=== PATIENT | female | born 1940 | race Caucasian/White ===

== ENCOUNTER 2016-10-08 10:15 | Emergency (ER) | payer MEDICARE, BC ==
[2016-10-08] MEDS ORDERED: Sodium Chloride 0.9% 10 ML Syringe FLUSH PRN (11:12)
[2016-10-08] MEDS ORDERED: Sodium Chloride 0.9% 1,000 ML IV SCH (11:15)
[2016-10-08] MEDS ORDERED: HYDROmorphone 0.5 MG/0.5 ML Syringe IVPUSH ONE (11:15)
[2016-10-08] MEDS ORDERED: Ondansetron 4 MG/2 ML SDV IVPUSH ONE (11:15)
--- NOTE | 2016-10-08 11:18 | EDM.PDOC ---
ED HPI GI/ABDOMINAL - General Chief Complaint: Abdominal Pain Stated Complaint: ABDOMINAL PAIN Time Seen by Provider: 10/08/16 11:06 Source: Reports: Patient, RN notes reviewed History Limitations: Reports: No limitations - History of Present Illness INITIAL COMMENTS - FREE TEXT/NARRATIVE: 75-year-old female [facility] emergency [facility] for severe left lower quadrant pain, she has a known history of diverticular disease as well as abdominal surgeries appendix this in and cholecystectomy. She states that ongoing abdominal pain for several months in the left lower quadrant but usually resolves spontaneously this particular event has been going on the last couple of days more and more intense at the point where it brings tears to her eyes she has not passed any gas denies any fevers shortness of breath chest pain - Related Data Allergies/ADRs: Allergies Allergy/AdvReac Type Severity Reaction Status Date / Time venom-honey bee Allergy Severe Difficulty Verified 10/08/16 10:57 [bee venom (honey bee)] Breathing codeine AdvReac Lightheaded Verified 10/08/16 10:57 ness sulfamethoxazole AdvReac Lightheaded Verified 10/08/16 10:57 [From Bactrim] ness trimethoprim [From Bactrim] AdvReac Lightheaded Verified 10/08/16 10:57 ness Home Meds: Home Meds Aspirin [Low Dose Aspirin EC] 81 mg PO DAILY 11/12/13 [History] Furosemide [Lasix] 40 mg PO DAILY 11/12/13 [History] Metoprolol Tartrate [Lopressor] 25 mg PO BID 11/12/13 [History] Past Medical History HEENT History: Reports: Cataract, Hard of hearing, Impaired vision Other HEENT History: wears glasses Cardiovascular History: Reports: Arrhythmia Respiratory History: Reports: COPD Gastrointestinal History: Reports: Chronic diarrhea, Colon polyp, Gastritis, GERD 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: Musculoskeletal History: Reports: Fracture Psychiatric History: Reports: Depression Oncologic (Cancer) History: Reports: Other (see below) 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 - Infectious Disease History Infectious Disease History: Reports: Chicken pox, Measles, Mumps - Past Surgical History HEENT Surgical History: Reports: Adenoidectomy, Cataract surgery, Eye surgery, Tonsillectomy GI Surgical History: Reports: Appendectomy, Cholecystectomy, Colonoscopy, EGD, Hernia repair/other, Martine fundoplication Female Surgical History: Reports: Hysterectomy, Salpingo-oophorectomy Musculoskeletal Surgical History: Reports: Knee replacement Other Musculoskeletal Surgeries/Procedures:: left knee Social & Family History - Family History Family Medical History: Noncontributory - Tobacco Use Smoking Status *Q: Former Smoker Years of Tobacco use: 10 Used Tobacco, but Quit: Yes Month Tobacco Last Used: 1977 Tobacco Use Comment: quit 30 years ago Second Hand Smoke Exposure: No - Caffeine Use Caffeine Use: Reports: Tea - Alcohol Use Days Per Week of Alcohol Use: 4 Number of Drinks Per Day: 1 Total Drinks Per Week: 4 - Recreational Drug Use Recreational Drug Use: No ED ROS GENERAL - Review of Systems Review Of Systems: See Below Constitutional: Denies: fever, chills HEENT: Reports: No symptoms Respiratory: Reports: no symptoms Cardiovascular: Reports: No symptoms GI/Abdominal: Reports: Abdominal pain. Denies: Bloody stool, Constipation, Diarrhea, Flatus, Nausea, Vomiting : Reports: no symptoms Musculoskeletal: Reports: back pain Skin: Reports: no symptoms Neurological: Reports: no symptoms ED EXAM, GI/ABD - Physical Exam Exam: See Below Text/Narrative:: General: Female, moderate discomfort secondary to abdominal pain, alert and oriented x3 HEENT: head is atraumatic normocephalic, eyes pupils equal round reactive to light and accommodation sclera clear no conjunctivitis appreciated. Ears tympanic membranes clear and mack landmarks and light reflex are present bilaterally canals are clear. Nose no septal deviation, nares are clear, no blood present. Mouth mucosa is moist and pink no erythema or exudate noted in soft palate, tongue is midline uvula is midline, dentition is intact. Neck: Supple no thyromegaly no tracheal deviation. Nodes: Cervical nodes subclavicular nodes nontender no palpable lymphadenopathy noted. Lungs: clear to auscultation bilaterally with symmetrical respirations, no adventitious noise appreciated. CV: Regular rate and rhythm S1 and S2 appreciated no murmurs rubs or gallops noted. Abdomen: Soft, tenderness to palpation left lower quadrant, no palpable masses or organomegaly appreciated, no distention no guarding bowel sounds are present , open cholecystectomy scar healed well and. Neuro: Cranial nerves II through XII grossly intact Skin: Warm and dry, intact Extremities: No lower extremity edema appreciated, Course - Vital Signs Last Recorded V/S: Last Vital Signs Temp 97.2 F 10/08/16 10:53 Pulse 75 10/08/16 12:23 Resp 16 10/08/16 12:23 BP 146/105 H 10/08/16 12:23 Pulse Ox 96 10/08/16 12:23 - Orders/Labs/Meds Orders: Active Orders 24 hr Category Date Time Status Peripheral IV Care [RC] . DIRECTED Care 10/08/16 11:12 Active Iopamidol [Isovue-300 (61%)] Med 10/08/16 11:52 Active 116 ml IV . DIRECTED PRN Sodium Chloride 0.9% [Normal Saline] 1,000 ml Med 10/08/16 11:15 Active IV ASDIRECTED Sodium Chloride 0.9% [Normal Saline] 75 ml Med 10/08/16 12:00 Active IV ASDIRECTED Sodium Chloride 0.9% [Saline Flush] Med 10/08/16 11:12 Active 10 ml FLUSH ASDIRECTED PRN Peripheral IV Insertion Adult [OM.PC] Urgent Oth 10/08/16 11:12 Ordered Medication Orders Sodium Chloride (Normal Saline) 1,000 mls @ 999 mls/hr IV ASDIRECTED [facility] Last Admin: 10/08/16 11:37 Dose: 999 mls/hr Sodium Chloride (Normal Saline) 75 mls @ 3 mls/sec IV ASDIRECTED [facility] Last Admin: 10/08/16 12:08 Dose: 3 mls/sec Iopamidol (Isovue-300 (61%)) 116 ml IV . DIRECTED PRN PRN Reason: RADIOLOGY EXAM Stop: 10/09/16 11:53 Last Admin: 10/08/16 12:08 Dose: 116 ml Sodium Chloride (Saline Flush) 10 ml FLUSH ASDIRECTED PRN PRN Reason: Keep Vein Open Labs: Laboratory Tests 10/08/16 10/08/16 10/08/16 Range/Units 11:21 11:21 11:21 WBC 13.1 H (4.5-11.0) K/uL RBC 4.21 (3.30-5.50) M/uL Hgb 14.6 (12.0-15.0) g/dL Hct 43.6 (36.0-48.0) % MCV 104 H (80-98) fL MCH 35 H (27-31) pg MCHC 34 (32-36) % Plt Count 259 (150-400) K/uL Neut % (Auto) 76 H (36-66) % Lymph % (Auto) 13 L (24-44) % Ramsey % (Auto) 11 H (2-6) % Eos % (Auto) 0 L (2-4) % Baso % (Auto) 0 (0-1) % Sodium 140 (140-148) mmol/L Potassium 3.3 L (3.6-5.2) mmol/L Chloride 102 (100-108) mmol/L Carbon Dioxide 27 (21-32) mmol/L Anion Gap 14.3 H (5.0-14.0) mmol/L BUN 19 H (7-18) mg/dL Creatinine 1.2 H (0.6-1.0) mg/dL Est Cr Clr Drug Dosing 34.01 mL/min Estimated GFR (MDRD) 44 L (>60) Glucose 105 (74-106) mg/dL Lactic Acid 1.7 (0.4-2.0) mmol/L Calcium 8.6 (8.5-10.1) mg/dL Total Bilirubin 1.4 H (0.2-1.0) mg/dL AST 29 (15-37) U/L ALT 42 (12-78) U/L Alkaline Phosphatase 136 H (46-116) U/L Total Protein 6.7 (6.4-8.2) g/dL Albumin 3.4 (3.4-5.0) g/dL Globulin 3.3 (2.3-3.5) g/dL Albumin/Globulin Ratio 1.0 L (1.2-2.2) Lipase 95 (73-393) U/L Urine Color Urine Appearance Urine pH (4.5-8.0) Ur Specific [place] (1.008-1.030) Urine Protein (NEGATIVE) mg/dL Urine Glucose (UA) (NEGATIVE) mg/dL Urine Ketones (NEGATIVE) mg/dL Urine Occult Blood (NEGATIVE) Urine Nitrite (NEGATIVE) Urine Bilirubin (NEGATIVE) Urine Urobilinogen (NORMAL) mg/dL Ur Leukocyte Esterase (NEGATIVE) Urine RBC (0-5) Urine WBC (0-5) Ur Epithelial Cells Amorphous Sediment Urine Bacteria Urine Mucus 10/08/16 Range/Units 11:37 WBC (4.5-11.0) K/uL RBC (3.30-5.50) M/uL Hgb (12.0-15.0) g/dL Hct (36.0-48.0) % MCV (80-98) fL MCH (27-31) pg MCHC (32-36) % Plt Count (150-400) K/uL Neut % (Auto) (36-66) % Lymph % (Auto) (24-44) % Ramsey % (Auto) (2-6) % Eos % (Auto) (2-4) % Baso % (Auto) (0-1) % Sodium (140-148) mmol/L Potassium (3.6-5.2) mmol/L Chloride (100-108) mmol/L Carbon Dioxide (21-32) mmol/L Anion Gap (5.0-14.0) mmol/L BUN (7-18) mg/dL Creatinine (0.6-1.0) mg/dL Est Cr Clr Drug Dosing mL/min Estimated GFR (MDRD) (>60) Glucose (74-106) mg/dL Lactic Acid (0.4-2.0) mmol/L Calcium (8.5-10.1) mg/dL Total Bilirubin (0.2-1.0) mg/dL AST (15-37) U/L ALT (12-78) U/L Alkaline Phosphatase (46-116) U/L Total Protein (6.4-8.2) g/dL Albumin (3.4-5.0) g/dL Globulin (2.3-3.5) g/dL Albumin/Globulin Ratio (1.2-2.2) Lipase (73-393) U/L Urine Color Yellow Urine Appearance Slightly cloudy Urine pH 5.0 (4.5-8.0) Ur Specific [place] 1.020 (1.008-1.030) Urine Protein Negative (NEGATIVE) mg/dL Urine Glucose (UA) Normal (NEGATIVE) mg/dL Urine Ketones Negative (NEGATIVE) mg/dL Urine Occult Blood Negative (NEGATIVE) Urine Nitrite Negative (NEGATIVE) Urine Bilirubin Negative (NEGATIVE) Urine Urobilinogen Normal (NORMAL) mg/dL Ur Leukocyte Esterase Large (NEGATIVE) Urine RBC 0-5 (0-5) Urine WBC 20-30 H (0-5) Ur Epithelial Cells Few Amorphous Sediment Not seen Urine Bacteria Not seen Urine Mucus Rare Meds: Medications Generic Name Dose Route Start Last Admin Trade Name Freq PRN Reason Stop Dose Admin Sodium Chloride 1,000 mls @ 999 mls/hr 10/08/16 11:15 10/08/16 11:37 Normal Saline IV 999 mls/hr ASDIRECTED JONH Administration Sodium Chloride 75 mls @ 3 mls/sec 10/08/16 12:00 10/08/16 12:08 Normal Saline IV 3 mls/sec ASDIRECTED JONH Administration Iopamidol 116 ml 10/08/16 11:52 10/08/16 12:08 Isovue-300 (61%) IV 10/09/16 11:53 116 ml . DIRECTED PRN Administration RADIOLOGY EXAM Sodium Chloride 10 ml 10/08/16 11:12 Saline Flush FLUSH ASDIRECTED PRN Keep Vein Open Discontinued Medications Generic Name Dose Route Start Last Admin Trade Name Freq PRN Reason Stop Dose Admin Hydromorphone HCl 0.5 mg 10/08/16 11:15 10/08/16 11:41 Dilaudid IVPUSH 10/08/16 11:16 0.5 mg ONETIME ONE Administration Ondansetron HCl 4 mg 10/08/16 11:15 10/08/16 11:38 Zofran IVPUSH 10/08/16 11:16 4 mg ONETIME ONE Administration Sodium Chloride 10 ml 10/08/16 11:52 10/08/16 12:08 Saline Flush FLUSH 10/08/16 11:53 10 ml ONETIME ONE Administration Departure - Departure Time of Disposition: 13:10 Disposition: Home, Self-Care 01 Condition: good Clinical Impression: Diverticulitis large intestine Qualifiers: Diverticulitis bleeding: without bleeding Diverticulitis complication: without perforation or abscess Qualified Code(s): K57.32 - Diverticulitis of large intestine without perforation or abscess without bleeding Forms: ED Department Discharge Additional Instructions: take full course of antibiotics for both Augmentin and Flagyl 10 days, use hydrocodone as needed for pain control, Please followup with your primary care provider in 5-7 days if not better, please call return to the emergency department with worsening of symptoms. - My Orders Last 24 Hours: My Active Orders 10/08/16 11:12 Peripheral IV Care [RC] . DIRECTED Sodium Chloride 0.9% [Saline Flush] 10 ml FLUSH ASDIRECTED PRN Peripheral IV Insertion Adult [OM.PC] Urgent 10/08/16 11:15 Sodium Chloride 0.9% [Normal Saline] 1,000 ml IV ASDIRECTED 10/08/16 11:52 Iopamidol [Isovue-300 (61%)] 116 ml IV . DIRECTED PRN 10/08/16 12:00 Sodium Chloride 0.9% [Normal Saline] 75 ml IV ASDIRECTED - Assessment/Plan Last 24 Hours: My Active Orders 10/08/16 11:12 Peripheral IV Care [RC] . DIRECTED Sodium Chloride 0.9% [Saline Flush] 10 ml FLUSH ASDIRECTED PRN Peripheral IV Insertion Adult [OM.PC] Urgent 10/08/16 11:15 Sodium Chloride 0.9% [Normal Saline] 1,000 ml IV ASDIRECTED 10/08/16 11:52 Iopamidol [Isovue-300 (61%)] 116 ml IV . DIRECTED PRN 10/08/16 12:00 Sodium Chloride 0.9% [Normal Saline] 75 ml IV ASDIRECTED Plan: Assessment Acuity = acute Site and laterality = diverticulitis complicated patient with known diverticular disease Etiology = probable bacterial cause Manifestations = left lower quadrant pain abdominal Location of injury = home Lab values = CBC elevated at 13.1 consistent leukocytosis, potassium low at 2.3 consistent hypokalemia creatinine elevated at 1.2 consistent acute renal failure stage GIIIP bilirubin elevated at 1.4 consistent hyperbilirubinemia urinalysis reveals 20-30 WBCs consistent with pyuria CT scan does demonstrate a 7 cm segment in the large intestine consistent with diverticulitis Plan I did review labs and CT scan results with her she has been on Cipro in the past therefore we'll place her on dual therapy of Augmentin 875 by mouth twice a day and Flagyl 500 mg by mouth 3 times a day hydrocodone for pain control have her followup with her primary care in 3-5 days for reevaluation Patient was in agreement with the plan all questions were answered, they were instructed to return to the emergency department or call for worsening symptoms. This note was dictated using [employer] voice recognition software please call with any questions.
[2016-10-08] MEDS ORDERED: Sodium Chloride 0.9% 10 ML Syringe FLUSH ONE (11:52)
[2016-10-08] MEDS ORDERED: Iopamidol 612 MG/ML 150 ML Bottle IV PRN (11:52)
[2016-10-08] MEDS ORDERED: Sodium Chloride 0.9% 75 ML IV SCH (12:00)
--- NOTE | 2016-10-08 12:41 | CT ---
Abdomen Pelvis w Cont HISTORY: Left lower quadrant pain. Dose: Total DLP 817. COMPARISON: CT scan 10/04/2011 FINDINGS: Focal diverticulitis of the mid sigmoid colon. This is seen best on axial image 104. This is a segment of approximately 7 cm in length. There is no abscess or free air. Multiple diverticula present. Patient has small cystocele. The liver, spleen, pancreas, adrenal glands appear normal multiple peripelvic cysts in both kidneys. No bowel obstruction. Impression: 1. Focal diverticulitis of the mid sigmoid colon. No evidence for abscess or perforation. No obstruc tion. Findings called to the emergency room physician at 12:28 PM hours
[2016-10-08 13:54] VITALS: BP 141/71
== END 2016-10-08 13:54 | disposition home or self-care (01) ==
LOC: JP.ED 10:15
DX: K57.32 Diverticulitis of large intestine without perforation or abscess without bleeding (principal); J44.9 Chronic obstructive pulmonary disease, unspecified; Z88.5 Allergy status to narcotic agent; Z88.2 Allergy status to sulfonamides; Z88.8 Allergy status to other drugs, medicaments and biological substances; Z90.710 Acquired absence of both cervix and uterus; Z87.891 Personal history of nicotine dependence
CPT/HCPCS: 36415; 74177; 80053; 81001; 83605; 83690; 85025; 96361; 96374; 96375; 99284; J1170; J2405; J7030; J7040; J7050

== ENCOUNTER 2020-12-22 12:03 | Emergency (ER) | payer MEDICARE, BC ==
--- NOTE | 2020-12-22 12:49 | EDM.PDOC ---
ED HPI GENERAL MEDICAL PROBLEM - General Chief Complaint: Respiratory Problem Stated Complaint: COUGH,SOB Time Seen by Provider: 12/22/20 12:44 Source of Information: Reports: Patient, Old Records, Provider History Limitations: Reports: No Limitations - History of Present Illness INITIAL COMMENTS - FREE TEXT/NARRATIVE: 80 yo female was referred from the [facility] for cough, fatigue and mild tachypnea for 3-4 days. The provider was concerned about a PE. Has a pHx of tobacco use, COPD, alpha 1 antitrypsin deficiency, and diastolic heart failure. Was noted to be both tachypneic and tachycardic in the clinic. WBC ct is elevated to 14.3K, CXR neg, abd X-ray showed increased air only, H/H OK, LFT's elevated and stable, CRP was elevated, UA showed 10-20 wbc's/hpf, lactic acid 2.3, EKG with some subtle changes. Is coughing a lot and bringing up colored sputum. Per clinic notes has had both of her Covid vaccines. She adds late in her ER stay that she didn't take her metoprolol today. Gives no reason for missing it. Onset: Gradual Onset Date: 12/18/20 Duration: Day(s): (4), Getting Worse Location: Reports: Chest Quality: Reports: Other (no pain) Severity: Moderate Improves with: Reports: None Worsens with: Reports: Other (time) Context: Reports: Other (See HPI) Associated Symptoms: Reports: Cough, Shortness of Breath. 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) (none) - Related Data Allergies Allergy/AdvReac Type Severity Reaction Status Date / Time venom-honey bee Allergy Severe Difficulty Verified 12/22/20 12:29 [bee venom (honey bee)] Breathing levofloxacin [From Levaquin] Allergy Unknown Other Verified 12/22/20 12:29 sulfamethoxazole AdvReac Intermediate Lightheaded Verified 12/22/20 12:29 [From Bactrim] ness trimethoprim [From Bactrim] AdvReac Intermediate Lightheaded Verified 12/22/20 12:29 ness codeine AdvReac Mild Lightheaded Verified 12/22/20 12:29 ness Home Meds: Home Meds Furosemide [Lasix] 40 mg PO DAILY 11/12/13 [History] Metoprolol Tartrate [Lopressor] 25 mg PO BID 11/12/13 [History] Diphenoxylate HCl/Atropine [Diphenoxylate-Atrop 2.5-0.025] 2 each PO QID PRN 05/12/18 [History] Albuterol Sulfate [Proair Respiclick] 90 mcg IH ASDIRECTED PRN 12/22/20 [History] Azithromycin 250 mg PO DAILY #4 tablet 12/22/20 [Rx] predniSONE [Prednisone] 20 mg PO BID #8 tablet 12/22/20 [Rx] Past Medical History HEENT History: Reports: Cataract, Hard of Hearing, Impaired Vision Other HEENT History: wears glasses Cardiovascular History: Reports: Arrhythmia Respiratory History: Reports: Asthma, COPD Gastrointestinal History: Reports: Chronic Diarrhea, Colon Polyp, Gastritis, GERD 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: Musculoskeletal History: Reports: Fracture Psychiatric History: Reports: Depression Oncologic (Cancer) History: Reports: Other (See Below) 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 3 knee replacements and 1 hip Social & Family History - Family History Family Medical History: No Pertinent Family History - Caffeine Use Caffeine Use: Reports: Tea ED ROS GENERAL - Review of Systems Review Of Systems: See Below Constitutional: Reports: Malaise, Fatigue. Denies: Fever, Chills HEENT: Reports: Rhinitis Respiratory: Reports: Shortness of Breath, Wheezing, Cough, Sputum. Denies: Pleuritic Chest Pain, Hemoptysis Cardiovascular: Reports: No Symptoms GI/Abdominal: Reports: No Symptoms : Reports: No Symptoms Musculoskeletal: Reports: No Symptoms Skin: Reports: No Symptoms Neurological: Reports: No Symptoms Psychiatric: Reports: No Symptoms ED EXAM, GENERAL - Physical Exam Exam: See Below Exam Limited By: No Limitations General Appearance: Alert, WD/WN, No Apparent Distress Eye Exam: Bilateral Eye: Normal Inspection Ears: Normal External Exam, Normal Canal, Hearing Grossly Normal, Normal TMs Ear Exam: Bilateral Ear: Auricle Normal, Canal Normal, TM normal Nose: Normal Inspection, No Blood Throat/Mouth: Normal Inspection, Normal Lips, Normal Oropharynx, Normal Voice, No Airway Compromise Head: Atraumatic, Normocephalic Neck: Normal Inspection Respiratory/Chest: Decreased Breath Sounds, Wheezing, Other (mild tachypnea) Cardiovascular: Regular Rate, Rhythm, No Edema, Tachycardia GI/Abdominal: Soft, Non-Tender, No Distention Back Exam: Normal Inspection. No: CVA Tenderness (R), CVA Tenderness (L) Extremities: Normal Inspection, Normal Range of Motion, Non-Tender, No Pedal Edema Neurological: Alert, Oriented, CN II-XII Intact, Normal Cognition, No Motor/Sensory Deficits Psychiatric: Normal Affect, Normal Mood Skin Exam: Warm, Dry, Intact, Normal Color, No Rash Course - Vital Signs Last Recorded V/S: Last Vital Signs Temp 36.8 C 12/22/20 12:46 Pulse 98 12/22/20 16:26 Resp 12 12/22/20 16:26 BP 149/74 H 12/22/20 16:26 Pulse Ox 99 12/22/20 16:26 - Orders/Labs/Meds Orders: Active Orders 24 hr Category Date Time Status Cardiac Monitoring [RC] .As Directed Care 12/22/20 12:42 Active RT Aerosol Therapy [RC] ASDIRECTED Care 12/22/20 12:53 Active COVID-19/FLU A+B/RSV [MOLEC] Stat Lab 12/22/20 16:19 Ordered CULTURE RESPIRATORY + SMEAR [RM] Stat Lab 12/22/20 14:09 Received LACTIC ACID [CHEM] Stat Lab 12/22/20 18:00 Ordered Iopamidol [Isovue-370 (76%)] Med 12/22/20 14:30 Active 75 ml IV . DIRECTED Sodium Chloride 0.9% [Saline Flush] Med 12/22/20 13:56 Active 10 ml FLUSH ASDIRECTED PRN Sodium Chloride 0.9% [Saline Flush] Med 12/22/20 14:19 Active 10 ml FLUSH ONETIME PRN Isolation [COMM] Stat Oth 12/22/20 16:19 Ordered Saline Lock Insert [OM.PC] Routine Oth 12/22/20 13:56 Ordered Medication Orders Iopamidol (Iopamidol 755 Mg/Ml 100 Ml Bottle) 75 ml IV . DIRECTED JONH Last Admin: 12/22/20 14:41 Dose: 75 ml Documented by: ANNA Sodium Chloride (Sodium Chloride 0.9% 10 Ml Syringe) 10 ml FLUSH ASDIRECTED PRN PRN Reason: Keep Vein Open Last Admin: 12/22/20 14:18 Dose: 10 ml Documented by: JOANA Sodium Chloride (Sodium Chloride 0.9% 10 Ml Syringe) 10 ml FLUSH ONETIME PRN PRN Reason: PER RADIOLOGY PROTOCOL Last Admin: 12/22/20 14:41 Dose: 10 ml Documented by: ANNA Labs: Laboratory Tests 12/22/20 12/22/20 12/22/20 Range/Units 13:15 13:59 15:25 D-Dimer, Quantitative 4767.12 H (0.0-500.0) ng/mL Lactic Acid 2.5 H (0.4-2.0) mmol/L SARS CoV-2 RNA Rapid LIZANDRO Negative Meds: Medications Generic Name Dose Route Start Last Admin Trade Name Freq PRN Reason Stop Dose Admin Iopamidol 75 ml 12/22/20 14:30 12/22/20 14:41 Iopamidol 755 Mg/Ml 100 Ml Bottle IV 75 ml . DIRECTED JONH Administration Sodium Chloride 10 ml 12/22/20 13:56 12/22/20 14:18 Sodium Chloride 0.9% 10 Ml Syringe FLUSH 10 ml ASDIRECTED PRN Administration Keep Vein Open Sodium Chloride 10 ml 12/22/20 14:19 12/22/20 14:41 Sodium Chloride 0.9% 10 Ml Syringe FLUSH 10 ml ONETIME PRN Administration PER RADIOLOGY PROTOCOL Discontinued Medications Generic Name Dose Route Start Last Admin Trade Name Freq PRN Reason Stop Dose Admin Albuterol/Ipratropium 3 ml 12/22/20 12:53 12/22/20 13:03 Albuterol/Ipratropium 3.0-0.5 Mg/3 Ml Neb Soln NEB 12/22/20 12:54 3 ml ONETIME ONE Administration Azithromycin 500 mg 12/22/20 16:44 Azithromycin 250 Mg Tab PO 12/22/20 16:45 ONETIME ONE Sodium Chloride 89 mls @ 3 mls/sec 12/22/20 14:19 12/22/20 14:41 Normal Saline IV 12/22/20 14:20 3 mls/sec ONETIME ONE Administration Lactated Ringer's 1,000 mls @ 500 mls/hr 12/22/20 15:45 Ringers, Lactated IV ASDIRECTED JONH Metoprolol Tartrate 50 mg 12/22/20 15:43 Metoprolol Tartrate 50 Mg Tab PO 12/22/20 15:44 ONETIME ONE Metoprolol Tartrate 25 mg 12/22/20 15:47 12/22/20 15:55 Metoprolol Tartrate 25 Mg Tab PO 12/22/20 15:48 25 mg ONETIME ONE Administration Prednisone 20 mg 12/22/20 16:44 Prednisone 20 Mg Tab PO 12/22/20 16:45 ONETIME ONE Simethicone 160 mg 12/22/20 16:30 12/22/20 16:36 Simethicone 80 Mg Tab.Chew PO 12/22/20 16:31 160 mg ONETIME ONE Administration - Radiology Interpretation Free Text/Narrative:: angio Chest-neg for PE or pneumonia CT Results Date: 12/22/20 - Re-Assessments/Exams Free Text/Narrative Re-Assessment/Exam: 12/22/20 15:49 Says the Duoneb helped her breathing she got in the ER. Departure - Departure Time of Disposition: 17:00 Disposition: Home, Self-Care 01 Condition: Fair Clinical Impression: Bronchitis, Bronchospasm with bronchitis, acute - Discharge Information *PRESCRIPTION DRUG MONITORING PROGRAM REVIEWED*: Not Applicable *COPY OF PRESCRIPTION DRUG MONITORING REPORT IN PATIENT SUE: Not Applicable Prescriptions: Azithromycin 250 mg PO DAILY #4 tablet predniSONE [Prednisone] 20 mg PO BID #8 tablet Instructions: Chronic Bronchitis, Adult Referrals: Gladis Roblero PA-C [Primary Care Provider] - Forms: ED Department Discharge Additional Instructions: Take your next dose of prednisone with breakfast tomorrow and then with dinner and breakfast going forward until gone. Take the azithromycin every day at supper time until gone, next dose tomorrow. Use your other meds as directed, you may need to use your albuterol inhaler 2 puffs every 4 hrs around the clock for a few days. Follow up in the clinic on Friday, return here over the weekend if worse. Sepsis Event Note (ED) - Focused Exam Vital Signs: Vital Signs Temp Pulse Pulse Resp BP BP Pulse Ox 12/22/20 16:26 98 12 149/74 H 99 12/22/20 15:55 115 H 157/64 H 12/22/20 15:00 113 H 19 162/107 H 99 12/22/20 12:52 114 H 28 H 167/73 H 99 12/22/20 12:46 36.8 C 112 H 20 158/70 H 100 12/22/20 12:39 36.0 C L 119 H 20 158/70 H 99 - My Orders Last 24 Hours: My Active Orders 12/22/20 12:42 Cardiac Monitoring [RC] .As Directed 12/22/20 12:53 RT Aerosol Therapy [RC] ASDIRECTED 12/22/20 13:56 Sodium Chloride 0.9% [Saline Flush] 10 ml FLUSH ASDIRECTED PRN Saline Lock Insert [OM.PC] Routine 12/22/20 14:09 CULTURE RESPIRATORY + SMEAR [RM] Stat 12/22/20 14:19 Sodium Chloride 0.9% [Saline Flush] 10 ml FLUSH ONETIME PRN 12/22/20 14:30 Iopamidol [Isovue-370 (76%)] 75 ml IV . DIRECTED 12/22/20 16:19 COVID-19/FLU A+B/RSV [MOLEC] Stat Isolation [COMM] Stat 12/22/20 18:00 LACTIC ACID [CHEM] Stat - Assessment/Plan Last 24 Hours: My Active Orders 12/22/20 12:42 Cardiac Monitoring [RC] .As Directed 12/22/20 12:53 RT Aerosol Therapy [RC] ASDIRECTED 12/22/20 13:56 Sodium Chloride 0.9% [Saline Flush] 10 ml FLUSH ASDIRECTED PRN Saline Lock Insert [OM.PC] Routine 12/22/20 14:09 CULTURE RESPIRATORY + SMEAR [RM] Stat 12/22/20 14:19 Sodium Chloride 0.9% [Saline Flush] 10 ml FLUSH ONETIME PRN 12/22/20 14:30 Iopamidol [Isovue-370 (76%)] 75 ml IV . DIRECTED 12/22/20 16:19 COVID-19/FLU A+B/RSV [MOLEC] Stat Isolation [COMM] Stat 12/22/20 18:00 LACTIC ACID [CHEM] Stat
[2020-12-22] MEDS ORDERED: Albuterol/Ipratropium 3.0-0.5 MG/3 ML Neb Soln NEB ONE (12:53)
[2020-12-22] MEDS ORDERED: Sodium Chloride 0.9% 10 ML Syringe FLUSH PRN ×2 (13:56→14:19)
[2020-12-22] MEDS ORDERED: Iopamidol 755 Mg/ML 100 ML Bottle IV SCH (14:30)
--- NOTE | 2020-12-22 15:02 | CT ---
Ang Chest CLINICAL HISTORY: Elevated d-dimer, SOB TECHNIQUE: Thin section axial contiguous tomographic sections were taken through the chest after bolus IV iodinated contrast administration. Coronal and sagittal images were reconstructed. Auto dosage reduction and iterative reconstruction techniques employed. FINDINGS: There are some mild patchy groundglass opacities bilaterally, greatest in the right upper lobe. There are scattered pleural parenchymal scarring. There are emphysematous changes in the lungs. No pulmonary mass is identified. There are no filling defects in the pulmonary arteries. The aorta shows some plaque without aneurysm or dissection. Scans of the upper abdomen show moderate ascites. Liver configuration suggests cirrhosis. IMPRESSION: No evidence of pulmonary and less Emphysematous changes and pleural parenchymal scarring No pulmonary mass or infiltrates Moderate ascites Changes in the liver suggesting cirrhosis
[2020-12-22] MEDS ORDERED: Metoprolol Tartrate 50 MG Tab PO ONE (15:43)
[2020-12-22] MEDS ORDERED: Lactated Ringers 1,000 ML IV SCH (15:45)
[2020-12-22] MEDS ORDERED: Metoprolol Tartrate 25 MG Tab PO ONE (15:47)
[2020-12-22 16:26] VITALS: BP 149/74; PULSE 98
[2020-12-22] MEDS ORDERED: Simethicone 80 MG Tab.Chew PO ONE (16:30)
[2020-12-22] MEDS ORDERED: predniSONE 20 MG Tab PO ONE (16:44)
[2020-12-22] MEDS ORDERED: Azithromycin 250 MG Tab PO ONE (16:44)
== END 2020-12-22 17:14 | disposition home or self-care (01) ==
LOC: JP.ED 12:03
DX: J20.9 Acute bronchitis, unspecified (principal); Z20.822 Contact with and (suspected) exposure to COVID-19; J44.9 Chronic obstructive pulmonary disease, unspecified; Z79.899 Other long term (current) drug therapy; Z91.030 Bee allergy status; Z88.1 Allergy status to other antibiotic agents; Z88.5 Allergy status to narcotic agent; Z88.2 Allergy status to sulfonamides; Z72.0 Tobacco use
CPT/HCPCS: 36415; 71275; 83605; 85379; 87070; 87077; 87205; 94640; 99284; 99285; A9270; J7512; Q9967; U0002; J7620-GY

== ENCOUNTER 2021-01-11 08:05 | Day surgery (SDC) | payer MEDICARE, BC ==
[2021-01-11] MEDS ORDERED: Propofol 200 MG/20 ML SDV ONE (08:19)
[2021-01-11] MEDS ORDERED: fentaNYL 100 MCG/2 ML SDV ONE (08:19)
[2021-01-11] MEDS ORDERED: Midazolam 1 MG/ML 2 ML SDV ONE (08:19)
[2021-01-11] MEDS ORDERED: MVI, Adult with Vitamin K 10 ML, Zinc/Copper/Manganese/Selenium 1 ML in Lactated Ringer... IV ONE ×3 (08:30)
[2021-01-11] MEDS ORDERED: Fluconazole/Normal Saline 200 MG in Premix Bag 1 BAG IV ONE (10:00)
[2021-01-11 13:33] VITALS: BP 138/56; PULSE 66
--- NOTE | 2021-01-24 16:02 | OR ---
DATE OF PROCEDURE: 01/11/2021 SURGEON: Brayan Cooper MD PREOPERATIVE DIAGNOSIS: Dysphagia. POSTOPERATIVE DIAGNOSIS: Dysphagia secondary to diffuse fungal esophagitis. PROCEDURE PERFORMED: Upper gastrointestinal endoscopy. ANESTHESIA: IV sedation. INDICATION FOR PROCEDURE: A 80-year-old female presenting for upper endoscopy for evaluation of some dysphagia. Plan is to proceed with upper GI endoscopy with biopsies and/or dilation as indicated. Potential risks including bleeding and perforation were discussed, and the patient wishes to proceed. DETAILS OF PROCEDURE: The patient was taken to the operating room and placed in a left lateral decubitus position. IV sedation was administered after which the upper GI endoscope was passed orally through the length of the esophagus and into the stomach with retroflexion view of the fundus, and thereafter, through the pyloric channel into the proximal duodenum. Findings included normal hypopharynx, larynx, and upper esophageal sphincter. Within the esophagus, there was more or less diffuse fungal esophagitis. This was not associated with any stricturing, and some mild to moderate inflammation associated with it was noted in the esophageal mucosa. The patient had Martine fundoplication previously, and that remained intact. The remainder of the gastric and duodenal exams were unremarkable. At this point, the procedure was concluded. The patient will be started on Diflucan 200 mg daily x5 days. The patient has been host of medical problems which seem to be becoming more problematic. The patient will be set up to see Gladis Roblero PA-C, next Friday or Friday for followup of those medical issues. Brayan Cooper MD /[id number]
== END 2021-01-11 13:40 | disposition home or self-care (01) ==
LOC: JP.SDS 08:05
PROVIDERS: ATTEND Surgery
DX: K20.90 Esophagitis, unspecified without bleeding (principal); I13.0 Hypertensive heart and chronic kidney disease with heart failure and stage 1 through stage 4 chronic kidney disease, or unspecified chronic kidney disease; I50.9 Heart failure, unspecified; N18.9 Chronic kidney disease, unspecified; J44.9 Chronic obstructive pulmonary disease, unspecified; E78.00 Pure hypercholesterolemia, unspecified; Z98.890 Other specified postprocedural states
CPT/HCPCS: 36415; 43235; 80053; 83735; 84100; 85027; J1450; J2250; J2704; J3010; J7120

== ENCOUNTER 2021-01-21 20:51 | Inpatient (IN) | payer MEDICARE, BC ==
[2021-01-21] MEDS ORDERED: Sodium Chloride 0.9% 10 ML Syringe FLUSH PRN (20:52)
--- NOTE | 2021-01-21 21:16 | EDM.PDOC ---
ED HPI GENERAL MEDICAL PROBLEM - General Chief Complaint: General Stated Complaint: MEDICAL VIA [place] Time Seen by Provider: 01/21/21 20:52 Source of Information: Reports: Patient, EMS History Limitations: Reports: No Limitations - History of Present Illness INITIAL COMMENTS - FREE TEXT/NARRATIVE: Ngoc is a 80-year-old female brought in by [facility] for evaluation of generalized weakness, abdominal pain, and generally not feeling well. Patient has history significant for a Martine fundoplication and was seen last week by Dr. Cooper for esophageal dilation with biopsies showing esophageal candidiasis. He put her on an inhaled steroid to treat this. She also has a history of exploratory laparotomy with resection of 12 inches of her colon. Patient is also being managed for liver failure with ascites and is scheduled to have a paracentesis as an outpatient on Friday (2 days from now). The patient reportedly fell at home yesterday and EMS was called but she declined transport and signed off on their evaluation. Today one of her caregivers called EMS to bring her in because of her steady decline of functioning at home. The patient is alert and oriented. She is complaining about 5 out of 10 abdominal pain with abdominal bloating. She has chronic diarrhea following the 12 inches of colon resected. She denies any change of appetite. right upper flank Pain Score (Numeric/FACES): 4 - Related Data Allergies Allergy/AdvReac Type Severity Reaction Status Date / Time venom-honey bee Allergy Severe Difficulty Verified 01/21/21 20:52 [bee venom (honey bee)] Breathing levofloxacin [From Levaquin] Allergy Unknown Other Verified 01/21/21 20:52 sulfamethoxazole AdvReac Intermediate Lightheaded Verified 01/21/21 20:52 [From Bactrim] ness trimethoprim [From Bactrim] AdvReac Intermediate Lightheaded Verified 01/21/21 20:52 ness codeine AdvReac Mild Lightheaded Verified 01/21/21 20:52 ness Home Meds: Home Meds Furosemide [Lasix] 40 mg PO DAILY 11/12/13 [History] Metoprolol Tartrate [Lopressor] 50 mg PO BID 11/12/13 [History] Albuterol Sulfate [Proair Respiclick] 2 puff IH Q4H PRN 12/22/20 [History] Acetaminophen [Tylenol Extra Strength] 500 mg PO ASDIRECTED 12/27/20 [History] Albuterol/Ipratropium [DuoNeb 3.0-0.5 MG/3 ML] 3 ml INH QID PRN 12/27/20 [History] Arformoterol [Brovana] 1 puff INH BID 12/27/20 [History] Budesonide [Pulmicort] 0.5 mg IH BID 12/27/20 [History] Fluticasone Propionate [Flonase] 2 spray NS DAILY 12/27/20 [History] Revefenacin [Yupelri] 1 puff IH DAILY 12/27/20 [History] allopurinoL [Zyloprim] 300 mg PO DAILY 12/27/20 [History] Citalopram Hydrobromide [Celexa] 40 mg PO DAILY 01/10/21 [History] Losartan Potassium [Cozaar] 50 mg PO DAILY 01/10/21 [History] Past Medical History HEENT History: Reports: Cataract, Hard of Hearing, Impaired Vision Other HEENT History: wears glasses Cardiovascular History: Reports: Arrhythmia Respiratory History: Reports: Asthma, COPD, SOB Gastrointestinal History: Reports: Chronic Diarrhea, Colon Polyp, Gastritis, GERD, Other (See Below) Other Gastrointestinal History: dysphagia Genitourinary History: Reports: None [employer] History: Reports: Musculoskeletal History: Reports: Fracture Psychiatric History: Reports: Depression Oncologic (Cancer) History: Reports: Other (See Below) 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 Dermatologic History: Reports: Other (See Below) Other Dermatologic History: 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 3 knee replacements and 1 hip Dermatological Surgical History: Reports: Skin Biopsy Social & Family History - Family History Family Medical History: No Pertinent Family History - Caffeine Use Caffeine Use: Reports: Soda ED ROS GENERAL - Review of Systems Review Of Systems: See Below Constitutional: Reports: Weakness (Generalized), Other (Generally not feeling well) HEENT: Reports: No Symptoms Respiratory: Reports: Shortness of Breath Cardiovascular: Reports: Edema Endocrine: Reports: Fatigue GI/Abdominal: Reports: Abdominal Pain (Generalized abdominal pain), Diarrhea (Chronic diarrhea), Decreased Appetite, Distension (Recurrent ascites due to liver failure) : Reports: No Symptoms Musculoskeletal: Reports: No Symptoms Skin: Reports: No Symptoms Neurological: Reports: Weakness (Generalized weakness) Psychiatric: Reports: Anxiety Hematologic/Lymphatic: Reports: No Symptoms Immunologic: Reports: No Symptoms ED EXAM, GENERAL - Physical Exam Exam: See Below Exam Limited By: No Limitations General Appearance: Alert, Anxious, Mild Distress Eye Exam: Bilateral Eye: EOMI, PERRL Throat/Mouth: Normal Inspection, Normal Oropharynx, Normal Voice, No Airway Compromise Head: Atraumatic, Normocephalic Neck: Normal Inspection, Supple, Non-Tender, Full Range of Motion Respiratory/Chest: No Respiratory Distress, No Accessory Muscle Use, Decreased Breath Sounds (Decreased breath sounds in both bases) Cardiovascular: Normal Peripheral Pulses, Regular Rate, Rhythm, Extra Beats Peripheral Pulses: 2+: Radial (L), Radial (R) GI/Abdominal: Distended (Significant abdominal distention with tympany to percussion throughout the upper abdomen. Fluid wave is heard on auscultation.), Tender (Diffusely tender abdomen without guarding or rebound.), Abnormal Bowel Sounds ([place] diminished bowel sounds.). No: Guarding, Rebound Extremities: Normal Range of Motion, Pedal Edema (4+ pitting edema bilaterally to the knees) Neurological: Alert, Oriented, Normal Cognition, No Motor/Sensory Deficits Psychiatric: Normal Affect, Normal Mood Skin Exam: Warm, Dry, Intact, Pallor Lymphatic: No Adenopathy #1 Interpretation EKG Date: 01/21/21 Time: 21:03 Rhythm: NSR Rate (Beats/Min): 73 [place]: Normal P-Wave: Present QRS: Other (Left anterior fascicular block) ST-T: Other (Nonspecific flattening of the T waves. 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 Care 01/21/21 23:15 Ordered PC] Q24H Urinary Catheter Assessment [RC] ASDIRECTED Care 01/21/21 23:09 Ordered Sodium Chloride 0.9% [Saline Flush] Med 01/21/21 20:52 Active 10 ml FLUSH ASDIRECTED PRN Saline Lock Insert [OM.PC] Routine Oth 01/21/21 20:52 Ordered EKG 12 Lead [EK] Routine Ther 01/21/21 20:52 Ordered Medication Orders Sodium Chloride (Sodium Chloride 0.9% 10 Ml Syringe) 10 ml FLUSH ASDIRECTED PRN PRN Reason: Keep Vein Open Last Admin: 01/21/21 22:08 Dose: 10 ml Documented by: FADUMO Labs: Laboratory Tests 01/21/21 01/21/21 01/21/21 Range/Units 21:15 21:15 21:15 WBC 10.0 (4.5-11.0) K/uL RBC 3.67 (3.30-5.50) M/uL Hgb 13.3 (12.0-15.0) g/dL Hct 37.2 (36.0-48.0) % MCV 101 H (80-98) fL MCH 36 H (27-31) pg MCHC 36 (32-36) % Plt Count 185 (150-400) K/uL Neut % (Auto) 66.7 H (36-66) % Lymph % (Auto) 16.3 L (24-44) % [place]mullen % (Auto) 15.1 H (2-6) % Eos % (Auto) 1.5 L (2-4) % Baso % (Auto) 0.4 (0-1) % Sodium 136 L (140-148) mmol/L Potassium 4.1 (3.6-5.2) mmol/L Chloride 103 (100-108) mmol/L Carbon Dioxide 25 (21-32) mmol/L Anion Gap 12.1 (5.0-14.0) mmol/L BUN 23 H (7-18) mg/dL Creatinine 1.2 H (0.6-1.0) mg/dL Est Cr Clr Drug Dosing 32.83 mL/min Estimated GFR (MDRD) 43 L (>60) Glucose 109 H (74-106) mg/dL Lactic Acid 2.1 H (0.4-2.0) mmol/L Calcium 8.2 L (8.5-10.1) mg/dL Total Bilirubin 2.1 H (0.2-1.0) mg/dL AST 87 H (15-37) U/L ALT 56 (12-78) U/L Alkaline Phosphatase 245 H (46-116) U/L Ammonia (11-32) umol/L Troponin I (0.000-0.056) ng/mL NT-Pro-B Natriuret Pep 950 H (5-450) pg/mL Total Protein 4.7 L (6.4-8.2) g/dL Albumin 2.1 L (3.4-5.0) g/dL Globulin 2.6 (2.3-3.5) g/dL Albumin/Globulin Ratio 0.8 L (1.2-2.2) 01/21/21 01/21/21 Range/Units 21:15 21:15 WBC (4.5-11.0) K/uL RBC (3.30-5.50) M/uL Hgb (12.0-15.0) g/dL Hct (36.0-48.0) % MCV (80-98) fL MCH (27-31) pg MCHC (32-36) % Plt Count (150-400) K/uL Neut % (Auto) (36-66) % Lymph % (Auto) (24-44) % [place]mullen % (Auto) (2-6) % Eos % (Auto) (2-4) % Baso % (Auto) (0-1) % Sodium (140-148) mmol/L Potassium (3.6-5.2) mmol/L Chloride (100-108) mmol/L Carbon Dioxide (21-32) mmol/L Anion Gap (5.0-14.0) mmol/L BUN (7-18) mg/dL Creatinine (0.6-1.0) mg/dL Est Cr Clr Drug Dosing mL/min Estimated GFR (MDRD) (>60) Glucose (74-106) mg/dL Lactic Acid (0.4-2.0) mmol/L Calcium (8.5-10.1) mg/dL Total Bilirubin (0.2-1.0) mg/dL AST (15-37) U/L ALT (12-78) U/L Alkaline Phosphatase (46-116) U/L Ammonia 28 (11-32) umol/L Troponin I 0.055 (0.000-0.056) ng/mL NT-Pro-B Natriuret Pep (5-450) pg/mL Total Protein (6.4-8.2) g/dL Albumin (3.4-5.0) g/dL Globulin (2.3-3.5) g/dL Albumin/Globulin Ratio (1.2-2.2) Meds: Medications Generic Name Dose Route Start Last Admin Trade Name Freq PRN Reason Stop Dose Admin Sodium Chloride 10 ml 01/21/21 20:52 01/21/21 22:08 Sodium Chloride 0.9% 10 Ml Syringe FLUSH 10 ml ASDIRECTED PRN Administration Keep Vein Open Discontinued Medications Generic Name Dose Route Start Last Admin Trade Name Freq PRN Reason Stop Dose Admin Furosemide 40 mg 01/21/21 23:05 Furosemide 40 Mg/4 Ml Vial IVPUSH 01/21/21 23:06 ONETIME ONE - Radiology Interpretation Free Text/Narrative:: Reviewed the CT of the abdomen and pelvis without contrast as well as the report. There is mild pleural effusion on the right. There is significant i ntra-abdominal ascites with hepatic cirrhosis without hepatomegaly. There is mesenteric edema secondary to third spacing. Bowels are nonobstructive. - Re-Assessments/Exams Free Text/Narrative Re-Assessment/Exam: 01/21/21 22:16 reviewed the patient's labs including a CBC showing a leukocyte count of 10.0 with a normal differential. Her hemoglobin is 13 3 with a hematocrit of 37.2, and a platelet count of 185,000. Her comprehensive metabolic panel has a sodium of 136, potassium 4.1, chloride 103 with a bicarbonate of 25, BUN of 23 with a creatinine 1.2 and a glucose of 109. Her lactic acid is elevated at 2.1 but I believe this is more likely metabolic as there is no evidence for the patient being septic with normotension, normal heart rate, and no fever. Her calcium is at 8.2 but corrected is in the normal range because her albumin is also low. Her total bili is elevated 2.1. Her AST is 87 with an ALT of 56 and alkaline phosphatase of 245. The patient has marked elevation of her pro natruretic brain peptide at 950 which is consistent with her 4+ pitting edema. CT of the abdomen and pelvis were performed showing marked abdominal ascites with a nonobstructive bowel pattern. There is a surgical anastomosis seen in the rectum and a Martine fundoplication. Hepatic cirrhosis without hepatomegaly. Mesenteric edema secondary to third spacing. Right pleural effusion. 01/21/21 23:11 at this time, I believe the patient requires hospitalization for diuresis. She has been negligent in taking her diuretic at home over the last 4 to 5 days because she has been too weak to get up to go to the bathroom. This is resulted in 4+ pitting edema both lower extremities from the knee down. She also has a right pleural effusion and worsening ascites. She is scheduled on Friday to have a paracentesis. She has been falling at home but according to her son, that she has been falling for the last 15 years. We will put a Avery catheter in and diurese her with Lasix 40 mg IV. I have significant concerns about her going home in her current state so I will arrange for admission. I discussed the case with Dr. Moreno will come in and evaluate the patient for admission. The patient and her son are in agreement with this plan. Departure - Departure Time of Disposition: 23:13 Disposition: Admitted As Inpatient 67 Clinical Impression: Bilateral lower extremity edema, Generalized weakness, Recurrent falls, Generalized abdominal pain, Elevated lactic acid level Congestive heart failure Qualifiers: Heart failure type: unspecified Heart failure chronicity: acute Qualified Code(s): I50.9 - Heart failure, unspecified Chronic liver failure Qualifiers: Hepatic coma status: without hepatic coma Qualified Code(s): K72.10 - Chronic hepatic failure without coma Cirrhosis of liver Qualifiers: Hepatic cirrhosis type: unspecified hepatic cirrhosis Ascites presence: with ascites Qualified Code(s): K74.60 - Unspecified cirrhosis of liver; R18.8 - Other ascites - Discharge Information Referrals: Gladis Roblero PA-C [Primary Care Provider] - Forms: ED Department Discharge Sepsis Event Note (ED) - Focused Exam Vital Signs: Vital Signs Temp Pulse Resp BP Pulse Ox 01/21/21 23:00 71 122/50 L 93 L 01/21/21 21:34 73 147/65 H 94 L 01/21/21 21:18 36.9 C 66 20 141/65 H 93 L 01/21/21 20:58 36.9 C 66 20 141/65 H 93 L - Problem List & Annotations (1) Bilateral lower extremity edema SNOMED Code(s): 076787192, 97849180, 726123688 Code(s): R60.0 - LOCALIZED EDEMA Status: Acute Priority: High Current Visit: Yes (2) Chronic liver failure SNOMED Code(s): 339090147 Code(s): K72.10 - CHRONIC HEPATIC FAILURE WITHOUT COMA Status: Chronic Priority: High Current Visit: Yes Qualifiers: Hepatic coma status: without hepatic coma Qualified Code(s): K72.10 - Chronic hepatic failure without coma (3) Cirrhosis of liver SNOMED Code(s): 58860036 Code(s): K74.60 - UNSPECIFIED CIRRHOSIS OF LIVER Status: Chronic Priority: High Current Visit: Yes Qualifiers: Hepatic cirrhosis type: unspecified hepatic cirrhosis Ascites presence: with ascites Qualified Code(s): K74.60 - Unspecified cirrhosis of liver; R18.8 - Other ascites (4) Congestive heart failure SNOMED Code(s): 86332177 Code(s): I50.9 - HEART FAILURE, UNSPECIFIED Status: Acute Priority: High Current Visit: Yes Qualifiers: Heart failure type: unspecified Heart failure chronicity: acute Qualified Code(s): I50.9 - Heart failure, unspecified (5) Elevated lactic acid level SNOMED Code(s): 5226365 Code(s): R79.89 - OTHER SPECIFIED ABNORMAL FINDINGS OF BLOOD CHEMISTRY Status: Acute Priority: Medium Current Visit: Yes (6) Generalized abdominal pain SNOMED Code(s): 448926821 Code(s): R10.84 - GENERALIZED ABDOMINAL PAIN Status: Chronic Priority: Medium Current Visit: Yes (7) Generalized weakness SNOMED Code(s): 11260123 Code(s): R53.1 - WEAKNESS Status: Acute Priority: Medium Current Visit: Yes (8) Recurrent falls SNOMED Code(s): 640996178 Code(s): R29.6 - REPEATED FALLS Status: Chronic Priority: Medium Current Visit: Yes - Problem List Review Problem List Initiated/Reviewed/Updated: Yes - My Orders Last 24 Hours: My Active Orders 01/21/21 20:52 Sodium Chloride 0.9% [Saline Flush] 10 ml FLUSH ASDIRECTED PRN Saline Lock Insert [OM.PC] Routine EKG 12 Lead [EK] Routine 01/21/21 20:53 EKG Documentation Completion [RC] ASDIRECTED 01/21/21 23:09 Urinary Catheter Assessment [RC] ASDIRECTED 01/21/21 23:15 Avery Catheter Insertion [Insert Urinary Catheter] [OM.PC] Q24H - Assessment/Plan Last 24 Hours: My Active Orders 01/21/21 20:52 Sodium Chloride 0.9% [Saline Flush] 10 ml FLUSH ASDIRECTED PRN Saline Lock Insert [OM.PC] Routine EKG 12 Lead [EK] Routine 01/21/21 20:53 EKG Documentation Completion [RC] ASDIRECTED 01/21/21 23:09 Urinary Catheter Assessment [RC] ASDIRECTED 01/21/21 23:15 Avery Catheter Insertion [Insert Urinary Catheter] [OM.PC] Q24H
--- NOTE | 2021-01-21 22:34 | CRLCT ---
For Patients: As a result of the Century Cures Act, medical imaging exams and procedure reports are released immediately into your electronic medical record. You may view this report before your referring provider. If you have questions, please contact your health care provider. INDICATION: Abdominal pain. TECHNIQUE: Noncontrast CT of the abdomen and pelvis. FINDINGS: CT changes compatible with hepatic cirrhosis. Surgically absent gallbladder. No splenomegaly. No biliary ductal dilatation. No intrahepatic mass identified. Moderately large amount of abdominal pelvic ascites. Edema/fluid within the mesentery. Soft tissue edema within the lower anterior abdominal wall and pelvis. Trace right-sided pleural effusion. Curvilinear fibrosis or atelectasis at the lung bases. The unenhanced pancreas is within normal limits. Moderately severe renal parenchymal thinning/volume loss left greater than right. No hydronephrosis. Vascular calcification within a normal caliber abdominal aorta and iliac arteries. The pelvis is obscured by metallic artifact from right hip arthroplasty. No lymphadenopathy identified. The included skeleton is negative for acute fractures. Degenerative disc disease in lower thoracic and lower lumbar spine. IMPRESSION: 1. Hepatic cirrhosis without splenomegaly. Surgically absent gallbladder. 2. There is at least a moderate amount of abdominopelvic ascites. Edema within the mesentery and within the soft tissues of the abdomen and pelvis related to 3rd spacing of fluid. 3. Trace right pleural effusion. Moderately severe renal parenchymal thinning/volume loss. Please note that all CT scans at this facility use dose modulation, iterative reconstruction, and/or weight-based dosing when appropriate to reduce radiation dose to as low as reasonably achievable. Dictated by Aime Caraballo MD @ 01/21/2021 10:32:[address] Aime Caraballo @ Jan 21 2021 10:32PM
[2021-01-21] MEDS ORDERED: Furosemide 40 MG/4 ML VIAL IVPUSH ONE (23:05)
[2021-01-21] MEDS ORDERED: Promethazine 6.25 MG in Sodium Chloride 0.9% 50 ML IV PRN (23:29)
[2021-01-21] MEDS ORDERED: Ondansetron 4 MG/2 ML SDV IV PRN (23:29)
[2021-01-21] MEDS ORDERED: Ondansetron 4 MG Tab.DIS PO PRN (23:29)
[2021-01-21] MEDS ORDERED: Morphine 2 MG/ML SYRINGE IVPUSH PRN (23:29)
[2021-01-21] MEDS ORDERED: Spironolactone 25 MG Tab PO ONE (23:59)
[2021-01-22] MEDS ORDERED: Albuterol/Ipratropium 3.0-0.5 MG/3 ML Neb Soln NEB PRN
[2021-01-22] MEDS ORDERED: Albuterol 0.083% 2.5 MG/3 ML Neb Soln NEB PRN (00:06)
--- NOTE | 2021-01-22 00:20 | PCM.HP.2 ---
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 She presents today with diffuse edema, and ascites. She has refused to take any of her medications for the last 3-4 days because she has felt too weak to get out of bed or go to the bathroom. She has said that she only has 30 days to live, despite this not being recorded in her medical record, and has not felt like getting out of bed. SHe has not been eating well because she is too 'weak' to get out of bed. In the ER she is found to have hypoalbuminemia, slight increases of LFTs, and minorly elevated Lactate, and an SHAKILA, but no increase in WBC or other s/s of infection. She does endorse pain from her ascites. Onset of Symptoms: Reports: Gradual Duration of Symptoms: Reports: Day(s):, Getting Worse Location: Reports: Generalized Worsens with: Reports: Movement right upper flank Pain Score (Numeric/FACES): 4 - Related Data Allergies/Adverse Reactions: Allergies Allergy/AdvReac Type Severity Reaction Status Date / Time venom-honey bee Allergy Severe Difficulty Verified 01/21/21 20:52 [bee venom (honey bee)] Breathing levofloxacin [From Levaquin] Allergy Unknown Other Verified 01/21/21 20:52 sulfamethoxazole AdvReac Intermediate Lightheaded Verified 01/21/21 20:52 [From Bactrim] ness trimethoprim [From Bactrim] AdvReac Intermediate Lightheaded Verified 01/21/21 20:52 ness codeine AdvReac Mild Lightheaded Verified 01/21/21 20:52 ness Home Medications: Home Meds Furosemide [Lasix] 40 mg PO DAILY 11/12/13 [History] Metoprolol Tartrate [Lopressor] 50 mg PO BID 11/12/13 [History] Albuterol Sulfate [Proair Respiclick] 2 puff IH Q4H PRN 12/22/20 [History] Acetaminophen [Tylenol Extra Strength] 500 mg PO ASDIRECTED 12/27/20 [History] Albuterol/Ipratropium [DuoNeb 3.0-0.5 MG/3 ML] 3 ml INH QID PRN 12/27/20 [History] Arformoterol [Brovana] 1 puff INH BID 12/27/20 [History] Budesonide [Pulmicort] 0.5 mg IH BID 12/27/20 [History] Fluticasone Propionate [Flonase] 2 spray NS DAILY 12/27/20 [History] Revefenacin [Yupelri] 1 puff IH DAILY 12/27/20 [History] allopurinoL [Zyloprim] 300 mg PO DAILY 12/27/20 [History] Citalopram Hydrobromide [Celexa] 40 mg PO DAILY 01/10/21 [History] Losartan Potassium [Cozaar] 50 mg PO DAILY 01/10/21 [History] Past Medical History HEENT History: Reports: Cataract, Hard of Hearing, Impaired Vision Other HEENT History: wears glasses Cardiovascular History: Reports: Arrhythmia, Hypertension Respiratory History: Reports: Asthma, COPD, SOB Gastrointestinal History: Reports: Chronic Diarrhea, Colon Polyp, Diverticulosis, Gastritis, GERD, Other (See Below) Other Gastrointestinal History: dysphagia Genitourinary History: Reports: None 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: Musculoskeletal History: Reports: Fracture, Gout Neurological History: Reports: TIA Psychiatric History: Reports: Depression Oncologic (Cancer) History: Reports: Other (See Below) 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 Dermatologic History: Reports: Other (See Below) Other Dermatologic History: 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 - Infectious Disease History Infectious Disease History: Reports: Chicken Pox, Measles, Mumps - Past Surgical History HEENT Surgical History: Reports: Adenoidectomy, Cataract Surgery, Eye Surgery, Tonsillectomy GI Surgical History: Reports: Appendectomy, Cholecystectomy, Colonoscopy, EGD, Hernia Repair/Other, Martine Fundoplication, Other (See Below) Other GI Surgeries/Procedures: 12 inches of small intestine removed due to diverticulitis Female Surgical History: Reports: Hysterectomy, Salpingo-Oophorectomy Musculoskeletal Surgical History: Reports: Hip Replacement, Knee Replacement Other Musculoskeletal Surgeries/Procedures:: x3 left knee replacements and Right hip Dermatological Surgical History: Reports: Skin Biopsy Social & Family History - Family History Family Medical History: No Pertinent Family History - Tobacco Use Tobacco Use Status *Q: Never Tobacco User - Caffeine Use Caffeine Use: Reports: Coffee - Recreational Drug Use Recreational Drug Use: No H&P Review of Systems - Review of Systems: Review Of Systems: See Below General: Reports: Weakness HEENT: Reports: No Symptoms Pulmonary: Reports: No Symptoms Cardiovascular: Reports: Edema (4+) Gastrointestinal: Reports: Abdominal Pain, Decreased Appetite, Other (ascites) Genitourinary: Reports: No Symptoms Musculoskeletal: Reports: No Symptoms Skin: Reports: No Symptoms Psychiatric: Reports: No Symptoms Neurological: Reports: Weakness Hematologic/Lymphatic: Reports: Easy Bruising Immunologic: Reports: No Symptoms Exam - Exam Exam: See Below - Vital Signs Vital Signs: Last Vital Signs Temp 36.4 C 01/21/21 23:26 Pulse 73 01/21/21 23:26 Resp 18 01/21/21 23:26 BP 148/60 H 01/21/21 23:26 Pulse Ox 91 L 01/21/21 23:26 Weight: 97.522 kg - Exam General: Alert, Oriented, 4 HEENT: PERRLA, Hearing Intact, Mucosa Moist & [place], Nares Patent, Normal Nasal Septum, Posterior Pharynx Clear, Conjunctiva Clear, EOMI, EACs Clear, TMs Clear Neck: Supple, Trachea Midline, 2 Lungs: Decreased Breath Sounds (decreased in both bases) Cardiovascular: Regular Rate, Regular Rhythm GI/Abdominal Exam: Distended, Other (ascites) (Female) Exam: Other (vaginal edema) Rectal (Female) Exam: Deferred Back Exam: Normal Inspection, Full Range of Motion, NT Extremities: Normal Inspection, Normal Range of Motion, Non-Tender, Normal Capillary Refill, Pedal Edema (4+) Skin: Warm, Dry, Intact Neurological: Cranial Nerves Intact, Reflexes Equal Bilateral Neuro Extensive - Mental Status: Alert, Oriented x3, Normal Mood/Affect, Normal Cognition Neuro Extensive - Motor, Sensory, Reflexes: CN II-XII Intact, Normal Gait, Norm al Reflexes Psychiatric: Alert, Normal Affect, Normal Mood - Patient Data Lab Results Last 24 hrs: Laboratory Results - last 24 hr 01/21/21 01/21/21 01/21/21 Range/Units 21:15 21:15 21:15 WBC 10.0 (4.5-11.0) K/uL RBC 3.67 (3.30-5.50) M/uL Hgb 13.3 (12.0-15.0) g/dL Hct 37.2 (36.0-48.0) % MCV 101 H (80-98) fL MCH 36 H (27-31) pg MCHC 36 (32-36) % Plt Count 185 (150-400) K/uL Neut % (Auto) 66.7 H (36-66) % Lymph % (Auto) 16.3 L (24-44) % [place] % (Auto) 15.1 H (2-6) % Eos % (Auto) 1.5 L (2-4) % Baso % (Auto) 0.4 (0-1) % Sodium 136 L (140-148) mmol/L Potassium 4.1 (3.6-5.2) mmol/L Chloride 103 (100-108) mmol/L Carbon Dioxide 25 (21-32) mmol/L Anion Gap 12.1 (5.0-14.0) mmol/L BUN 23 H (7-18) mg/dL Creatinine 1.2 H (0.6-1.0) mg/dL Est Cr Clr Drug Dosing 32.83 mL/min Estimated GFR (MDRD) 43 L (>60) Glucose 109 H (74-106) mg/dL Lactic Acid 2.1 H (0.4-2.0) mmol/L Calcium 8.2 L (8.5-10.1) mg/dL Total Bilirubin 2.1 H (0.2-1.0) mg/dL AST 87 H (15-37) U/L ALT 56 (12-78) U/L Alkaline Phosphatase 245 H (46-116) U/L Ammonia (11-32) umol/L Troponin I (0.000-0.056) ng/mL NT-Pro-B Natriuret Pep 950 H (5-450) pg/mL Total Protein 4.7 L (6.4-8.2) g/dL Albumin 2.1 L (3.4-5.0) g/dL Globulin 2.6 (2.3-3.5) g/dL Albumin/Globulin Ratio 0.8 L (1.2-2.2) Urine Color (YELLOW) Urine Appearance (CLEAR) Urine pH (5.0-8.0) Ur Specific [place] (1.008-1.030) Urine Protein (NEGATIVE) mg/dL Urine Glucose (UA) (NEGATIVE) mg/dL Urine Ketones (NEGATIVE) mg/dL Urine Occult Blood (NEGATIVE) Urine Nitrite (NEGATIVE) Urine Bilirubin (NEGATIVE) Urine Urobilinogen (0.2-1.0) EU/dL Ur Leukocyte Esterase (NEGATIVE) Urine RBC (0-5) Urine WBC (0-5) Ur Epithelial Cells Amorphous Sediment Urine Bacteria Urine Mucus 01/21/21 01/21/21 01/21/21 Range/Units 21:15 21:15 23:29 WBC (4.5-11.0) K/uL RBC (3.30-5.50) M/uL Hgb (12.0-15.0) g/dL Hct (36.0-48.0) % MCV (80-98) fL MCH (27-31) pg MCHC (32-36) % Plt Count (150-400) K/uL Neut % (Auto) (36-66) % Lymph % (Auto) (24-44) % [place] % (Auto) (2-6) % Eos % (Auto) (2-4) % Baso % (Auto) (0-1) % Sodium (140-148) mmol/L Potassium (3.6-5.2) mmol/L Chloride (100-108) mmol/L Carbon Dioxide (21-32) mmol/L Anion Gap (5.0-14.0) mmol/L BUN (7-18) mg/dL Creatinine (0.6-1.0) mg/dL Est Cr Clr Drug Dosing mL/min Estimated GFR (MDRD) (>60) Glucose (74-106) mg/dL Lactic Acid (0.4-2.0) mmol/L Calcium (8.5-10.1) mg/dL Total Bilirubin (0.2-1.0) mg/dL AST (15-37) U/L ALT (12-78) U/L Alkaline Phosphatase (46-116) U/L Ammonia 28 (11-32) umol/L Troponin I 0.055 (0.000-0.056) ng/mL NT-Pro-B Natriuret Pep (5-450) pg/mL Total Protein (6.4-8.2) g/dL Albumin (3.4-5.0) g/dL Globulin (2.3-3.5) g/dL Albumin/Globulin Ratio (1.2-2.2) Urine Color Yellow (YELLOW) Urine Appearance Clear (CLEAR) Urine pH 6.0 (5.0-8.0) Ur Specific [place] 1.025 (1.008-1.030) Urine Protein Negative (NEGATIVE) mg/dL Urine Glucose (UA) Negative (NEGATIVE) mg/dL Urine Ketones Negative (NEGATIVE) mg/dL Urine Occult Blood Negative (NEGATIVE) Urine Nitrite Negative (NEGATIVE) Urine Bilirubin Negative (NEGATIVE) Urine Urobilinogen 1.0 (0.2-1.0) EU/dL Ur Leukocyte Esterase Negative (NEGATIVE) Urine RBC 0-5 (0-5) Urine WBC 0-5 (0-5) Ur Epithelial Cells Not seen Amorphous Sediment Not seen Urine Bacteria Few Urine Mucus Not seen Result Diagrams: 01/21/21 21:15 01/21/21 21:15 Sepsis Event Note - Evaluation Sepsis Screening Result: No Definite Risk - Focused Exam Vital Signs: Vital Signs Temp Pulse Resp BP Pulse Ox 01/21/21 23:26 36.4 C 73 18 148/60 H 91 L 01/21/21 23:00 71 122/50 L 93 L 01/21/21 21:34 73 147/65 H 94 L 01/21/21 21:18 36.9 C 66 20 141/65 H 93 L 01/21/21 20:58 36.9 C 66 20 141/65 H 93 L - Problem List (1) Ascites SNOMED Code(s): 926815336 ICD Code: R18.8 - OTHER ASCITES Status: Acute Current Visit: Yes Onset Date: Unknown Problem Details: Will give patient spironolactone, albumin with lasix to follow. Patient is already scheduled for paracentesis on Friday, so surgical consult was not placed at this time as I do not foresee the patient having reasonable resolution of edema and weakness in that period of time. Will continue lasix with strict I&O measuring. Patient kept NPO overnight in case of need to do paracentesis in AM instead of friday Qualifiers: Ascites type: due to alcoholic cirrhosis Qualified Code(s): K70.31 - Alcoholic cirrhosis of liver with ascites (2) SHAKILA (acute kidney injury) SNOMED Code(s): 18680259, 66167502 ICD Code: N17.9 - ACUTE KIDNEY FAILURE, UNSPECIFIED Status: Acute Current Visit: Yes Problem Details: Likely due to poor PO intake as well as her stopping medications due to not getting out of bed for last several days. Will continue to monitor renal function with lasix doses (3) Chronic liver failure SNOMED Code(s): 785348962 ICD Code: K72.10 - CHRONIC HEPATIC FAILURE WITHOUT COMA Status: Chronic Priority: High Current Visit: Yes Problem Details: CLF due to A1AT disease as well as alcohol. Will treat currently with spironolactone, lasix and albumin Qualifiers: Hepatic coma status: without hepatic coma Qualified Code(s): K72.10 - Chronic hepatic failure without coma (4) Bilateral lower extremity edema SNOMED Code(s): 789314523, 95538662, 772098898 ICD Code: R60.0 - LOCALIZED EDEMA Status: Acute Priority: High Current Visit: Yes Problem Details: Assumed to be due to CLD and hypoalbuminemia as well as patient refusal to take medications (5) Congestive heart failure SNOMED Code(s): 18297799 ICD Code: I50.9 - HEART FAILURE, UNSPECIFIED Status: Acute Priority: High Current Visit: Yes Problem Details: Assumed to be due to CLD and hypoalbuminemia as well as patient refusal to take medications Qualifiers: Heart failure type: unspecified Heart failure chronicity: acute Qualified Code(s): I50.9 - Heart failure, unspecified (6) Elevated lactic acid level SNOMED Code(s): 6662897 ICD Code: R79.89 - OTHER SPECIFIED ABNORMAL FINDINGS OF BLOOD CHEMISTRY Status: Acute Priority: Medium Current Visit: Yes Problem Details: Assumed to be due to CLD and hypoalbuminemia as well as patient refusal to take medications, and poor PO intake (7) Generalized weakness SNOMED Code(s): 52672939 ICD Code: R53.1 - WEAKNESS Status: Acute Priority: Medium Current Visit: Yes Problem Details: likely worsened by depression due to thoughts that she will within 30 days, and Assumed to be due to CLD and hypoalbuminemia as well as patient refusal to take medications and poor PO intake (8) COPD (chronic obstructive pulmonary disease) SNOMED Code(s): 03875940 ICD Code: J44.9 - CHRONIC OBSTRUCTIVE PULMONARY DISEASE, UNSPECIFIED Status: Acute Current Visit: Yes Problem Details: Likely due to A1AT, restarted home medications of nebulizers and PRN albuterol and duonebs Qualifiers: COPD type: unspecified COPD Qualified Code(s): J44.9 - Chronic obstructive pulmonary disease, unspecified Problem List Initiated/Reviewed/Updated: Yes Orders Last 24hrs: Active Orders 24 hr Category Date Time Status Patient Status [ADT] Routine ADT 01/21/21 23:29 Ordered Avery Catheter Insertion [Insert Urinary Catheter] [OM. Care 01/21/21 23:15 Ordered PC] Q24H Intake and Output [RC] QSHIFT Care 01/21/21 23:32 Ordered Oxygen Therapy [RC] PRN Care 01/21/21 23:29 Ordered Pulse Oximetry [RC] CONTINUOUS Care 01/21/21 23:32 Ordered RT Aerosol Therapy [RC] ASDIRECTED Care 01/22/21 00:01 Ordered RT Aerosol Therapy [RC] ASDIRECTED Care 01/22/21 00:07 Ordered Urinary Catheter Assessment [RC] ASDIRECTED Care 01/21/21 23:09 Active VTE/DVT Education [RC] Per Unit Routine Care 01/21/21 23:29 Ordered Vital Signs [RC] Q4H Care 01/21/21 23:29 Ordered Nothing per Oral Now Diet [DIET] Diet 01/21/21 Breakfast Ordered BASIC METABOLIC PANEL,BMP [CHEM] AM Lab 01/22/21 05:11 Ordered HEPATIC FUNCTION PANEL,HFP [CHEM] AM Lab 01/22/21 05:11 Ordered INR,PT,PROTHROMBIN TIME [COAG] AM Lab 01/22/21 05:11 Ordered PTT,PARTIAL THROMBOPLSTIN TIME [COAG] AM Lab 01/22/21 05:11 Ordered Albumin 25 GM/100 ML IVPB @ 25 MLS/HR Med 01/22/21 01:30 Ordered Albumin Human [Albumin 25%] 25 gm in 100 ml IV ONETIME Albuterol [Proventil Neb Soln] Med 01/22/21 00:06 Ordered 2.5 mg NEB Q2H PRN Albuterol/Ipratropium [DuoNeb 3.0-0.5 MG/3 ML] Med 01/22/21 00:00 Ordered 3 ml NEB Q4H PRN Arformoterol [Brovana] Med 01/22/21 07:00 Ordered 15 mcg NEB BIDRT Budesonide [Pulmicort] Med 01/22/21 07:00 Ordered 0.5 mg NEB BIDRT Citalopram [Celexa] Med 01/22/21 09:00 Ordered 40 mg PO DAILY Furosemide [Lasix] Med 01/22/21 06:00 Ordered 40 mg IVPUSH Q6HR Morphine Med 01/21/21 23:29 Ordered 1 mg IVPUSH Q2H PRN Ondansetron [Zofran ODT] Med 01/21/21 23:29 Ordered 4 mg PO Q6H PRN Ondansetron [Zofran] Med 01/21/21 23:29 Ordered 4 mg IV Q4H PRN Promethazine [Phenergan] 6.25 mg Med 01/21/21 23:29 Ordered Sodium Chloride 0.9% [Normal Saline] 50 ml IV Q6H Sodium Chloride 0.9% [Saline Flush] Med 01/21/21 20:52 Active 10 ml FLUSH ASDIRECTED PRN Spironolactone [Aldactone] Med 01/21/21 23:59 Once 100 mg PO ONETIME ONE allopurinoL [Zyloprim] Med 01/22/21 09:00 Ordered 100 mg PO DAILY Saline Lock Insert [OM.PC] Routine Oth 01/21/21 20:52 Ordered Resuscitation Status Routine Resus Stat 01/21/21 23:29 Ordered EKG 12 Lead [EK] Routine Ther 01/21/21 20:52 Ordered Medication Orders Albuterol (Albuterol 0.083% 2.5 Mg/3 Ml Neb Soln) 2.5 mg NEB Q2H PRN PRN Reason: Cough Albuterol/Ipratropium (Albuterol/Ipratropium 3.0-0.5 Mg/3 Ml Neb Soln) 3 ml NEB Q4H PRN PRN Reason: Cough Allopurinol (Allopurinol 100 Mg Tab) 100 mg PO DAILY JONH Arformoterol Tartrate (Arformoterol 15 Mcg/2 Ml Neb Soln) 15 mcg NEB BIDRT JONH Budesonide (Budesonide 0.5 Mg/2 Ml Neb Susp) 0.5 mg NEB BIDRT JONH Citalopram Hydrobromide (Citalopram 20 Mg Tab) 40 mg PO DAILY JONH Furosemide (Furosemide 40 Mg/4 Ml Vial) 40 mg IVPUSH Q6HR JONH Promethazine HCl 6.25 mg/ (Sodium Chloride) 50.25 mls @ 200 mls/hr IV Q6H PRN PRN Reason: Nausea/Vomiting Albumin Human (Albumin 25%) 25 gm in 100 mls @ 25 mls/hr IV ONETIME ONE Stop: 01/22/21 05:29 Morphine Sulfate (Morphine 2 Mg/Ml Syringe) 1 mg IVPUSH Q2H PRN PRN Reason: Pain (severe 7-10) Ondansetron HCl (Ondansetron 4 Mg Tab.Dis) 4 mg PO Q6H PRN PRN Reason: Nausea able to take PO Ondansetron HCl (Ondansetron 4 Mg/2 Ml Sdv) 4 mg IV Q4H PRN PRN Reason: Nausea/Vomiting Sodium Chloride (Sodium Chloride 0.9% 10 Ml Syringe) 10 ml FLUSH ASDIRECTED PRN PRN Reason: Keep Vein Open Last Admin: 01/21/21 22:08 Dose: 10 ml Documented by: FADUMO Spironolactone (Spironolactone 25 Mg Tab) 100 mg PO ONETIME ONE Stop: 01/22/21 00:00
[2021-01-22] MEDS ORDERED: Furosemide 40 MG/4 ML VIAL IVPUSH SCH ×2 (06:00→12:00)
[2021-01-22] MEDS: Budesonide 0.5 MG/2 ML Neb Susp NEB SCH ×2 (06:59→21:07)
[2021-01-22] MEDS: Arformoterol 15 MCG/2 ML Neb Soln NEB SCH ×2 (08:34→21:03)
[2021-01-22] MEDS: Citalopram 20 MG Tab PO SCH (08:37)
[2021-01-22] MEDS: Allopurinol 100 MG Tab PO SCH (08:37)
--- NOTE | 2021-01-22 13:56 | PCM.PN ---
- General Info Date of Service: 01/22/21 Subjective Update: No acute events overnight following admission. Good response to diuresis so far. Still has a fair amount of lower extremity edema. Abdomen feels distended and bloated. She does not have much of an appetite and feels up quickly. She has not had any fevers. She thinks that she is a little stronger today but is quite weak. The home care providers felt that she was unsafe at home and were not sure they would be able to continue providing services after hospital discharge if she were to go home. Functional Status: Reports: Pain Controlled - Patient Data Vitals - Most Recent: Last Vital Signs Temp 35.9 C L 01/22/21 11:00 Pulse 72 01/22/21 11:00 Resp 18 01/22/21 11:00 BP 126/53 L 01/22/21 11:00 Pulse Ox 93 L 01/22/21 12:05 Weight - Most Recent: 82.372 kg I&O - Last 24 Hours: Intake & Output 01/21/21 01/22/21 01/22/21 22:59 06:59 14:59 Intake Total 100 300 Output Total 167 * 80 Balance -155) -50 Lab Results Last 24 Hours: Laboratory Results - last 24 hr 01/21/21 01/21/21 01/21/21 Range/Units 21:15 21:15 21:15 WBC 10.0 (4.5-11.0) K/uL RBC 3.67 (3.30-5.50) M/uL Hgb 13.3 (12.0-15.0) g/dL Hct 37.2 (36.0-48.0) % MCV 101 H (80-98) fL MCH 36 H (27-31) pg MCHC 36 (32-36) % Plt Count 185 (150-400) K/uL Neut % (Auto) 66.7 H (36-66) % Lymph % (Auto) 16.3 L (24-44) % [place] % (Auto) 15.1 H (2-6) % Eos % (Auto) 1.5 L (2-4) % Baso % (Auto) 0.4 (0-1) % PT (9.5-12.0) sec INR (0.80-1.20) APTT (27.0-36.0) sec Sodium 136 L (140-148) mmol/L Potassium 4.1 (3.6-5.2) mmol/L Chloride 103 (100-108) mmol/L Carbon Dioxide 25 (21-32) mmol/L Anion Gap 12.1 (5.0-14.0) mmol/L BUN 23 H (7-18) mg/dL Creatinine 1.2 H (0.6-1.0) mg/dL Est Cr Clr Drug Dosing 32.83 mL/min Estimated GFR (MDRD) 43 L (>60) Glucose 109 H (74-106) mg/dL Lactic Acid 2.1 H (0.4-2.0) mmol/L Calcium 8.2 L (8.5-10.1) mg/dL Total Bilirubin 2.1 H (0.2-1.0) mg/dL Direct Bilirubin (0.0-0.2) mg/dL Indirect Bilirubin AST 87 H (15-37) U/L ALT 56 (12-78) U/L Alkaline Phosphatase 245 H (46-116) U/L Ammonia (11-32) umol/L Troponin I (0.000-0.056) ng/mL NT-Pro-B Natriuret Pep 950 H (5-450) pg/mL Total Protein 4.7 L (6.4-8.2) g/dL Albumin 2.1 L (3.4-5.0) g/dL Globulin 2.6 (2.3-3.5) g/dL Albumin/Globulin Ratio 0.8 L (1.2-2.2) Urine Color (YELLOW) Urine Appearance (CLEAR) Urine pH (5.0-8.0) Ur Specific [place] (1.008-1.030) Urine Protein (NEGATIVE) mg/dL Urine Glucose (UA) (NEGATIVE) mg/dL Urine Ketones (NEGATIVE) mg/dL Urine Occult Blood (NEGATIVE) Urine Nitrite (NEGATIVE) Urine Bilirubin (NEGATIVE) Urine Urobilinogen (0.2-1.0) EU/dL Ur Leukocyte Esterase (NEGATIVE) Urine RBC (0-5) Urine WBC (0-5) Ur Epithelial Cells Amorphous Sediment Urine Bacteria Urine Mucus 01/21/21 01/21/21 01/21/21 Range/Units 21:15 21:15 23:29 WBC (4.5-11.0) K/uL RBC (3.30-5.50) M/uL Hgb (12.0-15.0) g/dL Hct (36.0-48.0) % MCV (80-98) fL MCH (27-31) pg MCHC (32-36) % Plt Count (150-400) K/uL Neut % (Auto) (36-66) % Lymph % (Auto) (24-44) % [place] % (Auto) (2-6) % Eos % (Auto) (2-4) % Baso % (Auto) (0-1) % PT (9.5-12.0) sec INR (0.80-1.20) APTT (27.0-36.0) sec Sodium (140-148) mmol/L Potassium (3.6-5.2) mmol/L Chloride (100-108) mmol/L Carbon Dioxide (21-32) mmol/L Anion Gap (5.0-14.0) mmol/L BUN (7-18) mg/dL Creatinine (0.6-1.0) mg/dL Est Cr Clr Drug Dosing mL/min Estimated GFR (MDRD) (>60) Glucose (74-106) mg/dL Lactic Acid (0.4-2.0) mmol/L Calcium (8.5-10.1) mg/dL Total Bilirubin (0.2-1.0) mg/dL Direct Bilirubin (0.0-0.2) mg/dL Indirect Bilirubin AST (15-37) U/L ALT (12-78) U/L Alkaline Phosphatase (46-116) U/L Ammonia 28 (11-32) umol/L Troponin I 0.055 (0.000-0.056) ng/mL NT-Pro-B Natriuret Pep (5-450) pg/mL Total Protein (6.4-8.2) g/dL Albumin (3.4-5.0) g/dL Globulin (2.3-3.5) g/dL Albumin/Globulin Ratio (1.2-2.2) Urine Color Yellow (YELLOW) Urine Appearance Clear (CLEAR) Urine pH 6.0 (5.0-8.0) Ur Specific [place] 1.025 (1.008-1.030) Urine Protein Negative (NEGATIVE) mg/dL Urine Glucose (UA) Negative (NEGATIVE) mg/dL Urine Ketones Negative (NEGATIVE) mg/dL Urine Occult Blood Negative (NEGATIVE) Urine Nitrite Negative (NEGATIVE) Urine Bilirubin Negative (NEGATIVE) Urine Urobilinogen 1.0 (0.2-1.0) EU/dL Ur Leukocyte Esterase Negative (NEGATIVE) Urine RBC 0-5 (0-5) Urine WBC 0-5 (0-5) Ur Epithelial Cells Not seen Amorphous Sediment Not seen Urine Bacteria Few Urine Mucus Not seen 01/22/21 01/22/21 Range/Units 05:30 05:30 WBC (4.5-11.0) K/uL RBC (3.30-5.50) M/uL Hgb (12.0-15.0) g/dL Hct (36.0-48.0) % MCV (80-98) fL MCH (27-31) pg MCHC (32-36) % Plt Count (150-400) K/uL Neut % (Auto) (36-66) % Lymph % (Auto) (24-44) % [place] % (Auto) (2-6) % Eos % (Auto) (2-4) % Baso % (Auto) (0-1) % PT 14.5 H (9.5-12.0) sec INR 1.34 H (0.80-1.20) APTT 37.6 H (27.0-36.0) sec Sodium 138 L (140-148) mmol/L Potassium 3.8 (3.6-5.2) mmol/L Chloride 103 (100-108) mmol/L Carbon Dioxide 26 (21-32) mmol/L Anion Gap 12.8 (5.0-14.0) mmol/L BUN 23 H (7-18) mg/dL Creatinine 1.1 H (0.6-1.0) mg/dL Est Cr Clr Drug Dosing 35.81 mL/min Estimated GFR (MDRD) 48 L (>60) Glucose 92 (74-106) mg/dL Lactic Acid (0.4-2.0) mmol/L Calcium 8.1 L (8.5-10.1) mg/dL Total Bilirubin 2.2 H (0.2-1.0) mg/dL Direct Bilirubin 0.80 H (0.0-0.2) mg/dL Indirect Bilirubin 1.40 AST 73 H (15-37) U/L ALT 44 (12-78) U/L Alkaline Phosphatase 191 H (46-116) U/L Ammonia (11-32) umol/L Troponin I (0.000-0.056) ng/mL NT-Pro-B Natriuret Pep (5-450) pg/mL Total Protein 4.4 L (6.4-8.2) g/dL Albumin 2.4 L (3.4-5.0) g/dL Globulin 2.0 L (2.3-3.5) g/dL Albumin/Globulin Ratio 1.2 (1.2-2.2) Urine Color (YELLOW) Urine Appearance (CLEAR) Urine pH (5.0-8.0) Ur Specific [place] (1.008-1.030) Urine Protein (NEGATIVE) mg/dL Urine Glucose (UA) (NEGATIVE) mg/dL Urine Ketones (NEGATIVE) mg/dL Urine Occult Blood (NEGATIVE) Urine Nitrite (NEGATIVE) Urine Bilirubin (NEGATIVE) Urine Urobilinogen (0.2-1.0) EU/dL Ur Leukocyte Esterase (NEGATIVE) Urine RBC (0-5) Urine WBC (0-5) Ur Epithelial Cells Amorphous Sediment Urine Bacteria Urine Mucus Med Orders - Current: Current Medications Albuterol (Albuterol 0.083% 2.5 Mg/3 Ml Neb Soln) 2.5 mg NEB Q2H PRN PRN Reason: Cough Allopurinol (Allopurinol 100 Mg Tab) 100 mg PO DAILY [facility] Last Admin: 01/22/21 08:37 Dose: 100 mg Documented by: Arformoterol Tartrate (Arformoterol 15 Mcg/2 Ml Neb Soln) 15 mcg NEB BIDRT [facility] Last Admin: 01/22/21 08:34 Dose: 15 mcg Documented by: Budesonide (Budesonide 0.5 Mg/2 Ml Neb Susp) 0.5 mg NEB BIDRT [facility] Last Admin: 01/22/21 06:59 Dose: 0.5 mg Documented by: Citalopram Hydrobromide (Citalopram 20 Mg Tab) 40 mg PO DAILY [facility] Last Admin: 01/22/21 08:37 Dose: 40 mg Documented by: Promethazine HCl 6.25 mg/ (Sodium Chloride) 50.25 mls @ 200 mls/hr IV Q6H PRN PRN Reason: Nausea/Vomiting Morphine Sulfate (Morphine 2 Mg/Ml Syringe) 1 mg IVPUSH Q2H PRN PRN Reason: Pain (severe 7-10) Ondansetron HCl (Ondansetron 4 Mg Tab.Dis) 4 mg PO Q6H PRN PRN Reason: Nausea able to take PO Ondansetron HCl (Ondansetron 4 Mg/2 Ml Sdv) 4 mg IV Q4H PRN PRN Reason: Nausea/Vomiting Sodium Chloride (Sodium Chloride 0.9% 10 Ml Syringe) 10 ml FLUSH ASDIRECTED PRN PRN Reason: Keep Vein Open Last Admin: 01/21/21 22:08 Dose: 10 ml Documented by: Discontinued Medications Albuterol/Ipratropium (Albuterol/Ipratropium 3.0-0.5 Mg/3 Ml Neb Soln) 3 ml NEB Q4H PRN PRN Reason: Cough Furosemide (Furosemide 40 Mg/4 Ml Vial) 40 mg IVPUSH ONETIME ONE Stop: 01/21/21 23:06 Last Admin: 01/21/21 23:33 Dose: 40 mg Documented by: Furosemide (Furosemide 40 Mg/4 Ml Vial) 40 mg IVPUSH Q6HR [facility] Last Admin: 01/22/21 05:39 Dose: 40 mg Documented by: Furosemide (Furosemide 40 Mg/4 Ml Vial) 40 mg IVPUSH Q6H [facility] Last Admin: 01/22/21 12:21 Dose: 40 mg Documented by: Albumin Human (Albumin 25%) 25 gm in 100 mls @ 25 mls/hr IV ONETIME ONE Stop: 01/22/21 05:29 Last Admin: 01/22/21 00:49 Dose: 25 mls/hr Documented by: Spironolactone (Spironolactone 25 Mg Tab) 100 mg PO ONETIME ONE Stop: 01/22/21 00:00 Last Admin: 01/22/21 00:48 Dose: 100 mg Documented by: - Exam Quality Assessment: No: Supplemental Oxygen Urinary Catheter Total Time: 0Days 14Hours General: Alert, Oriented, Cooperative, No Acute Distress Lungs: Normal Respiratory Effort Cardiovascular: Regular Rate, Regular Rhythm GI/Abdominal Exam: Soft, Distended Extremities: Pedal Edema. No: Increased Warmth Skin: Warm, Dry Psy/Mental Status: Alert, Normal Affect - Patient Data Lab Results Last 24 hrs: Laboratory Results - last 24 hr 01/21/21 01/21/21 01/21/21 Range/Units 21:15 21:15 21:15 WBC 10.0 (4.5-11.0) K/uL RBC 3.67 (3.30-5.50) M/uL Hgb 13.3 (12.0-15.0) g/dL Hct 37.2 (36.0-48.0) % MCV 101 H (80-98) fL MCH 36 H (27-31) pg MCHC 36 (32-36) % Plt Count 185 (150-400) K/uL Neut % (Auto) 66.7 H (36-66) % Lymph % (Auto) 16.3 L (24-44) % [place] % (Auto) 15.1 H (2-6) % Eos % (Auto) 1.5 L (2-4) % Baso % (Auto) 0.4 (0-1) % PT (9.5-12.0) sec INR (0.80-1.20) APTT (27.0-36.0) sec Sodium 136 L (140-148) mmol/L Potassium 4.1 (3.6-5.2) mmol/L Chloride 103 (100-108) mmol/L Carbon Dioxide 25 (21-32) mmol/L Anion Gap 12.1 (5.0-14.0) mmol/L BUN 23 H (7-18) mg/dL Creatinine 1.2 H (0.6-1.0) mg/dL Est Cr Clr Drug Dosing 32.83 mL/min Estimated GFR (MDRD) 43 L (>60) Glucose 109 H (74-106) mg/dL Lactic Acid 2.1 H (0.4-2.0) mmol/L Calcium 8.2 L (8.5-10.1) mg/dL Total Bilirubin 2.1 H (0.2-1.0) mg/dL Direct Bilirubin (0.0-0.2) mg/dL Indirect Bilirubin AST 87 H (15-37) U/L ALT 56 (12-78) U/L Alkaline Phosphatase 245 H (46-116) U/L Ammonia (11-32) umol/L Troponin I (0.000-0.056) ng/mL NT-Pro-B Natriuret Pep 950 H (5-450) pg/mL Total Protein 4.7 L (6.4-8.2) g/dL Albumin 2.1 L (3.4-5.0) g/dL Globulin 2.6 (2.3-3.5) g/dL Albumin/Globulin Ratio 0.8 L (1.2-2.2) Urine Color (YELLOW) Urine Appearance (CLEAR) Urine pH (5.0-8.0) Ur Specific [place] (1.008-1.030) Urine Protein (NEGATIVE) mg/dL Urine Glucose (UA) (NEGATIVE) mg/dL Urine Ketones (NEGATIVE) mg/dL Urine Occult Blood (NEGATIVE) Urine Nitrite (NEGATIVE) Urine Bilirubin (NEGATIVE) Urine Urobilinogen (0.2-1.0) EU/dL Ur Leukocyte Esterase (NEGATIVE) Urine RBC (0-5) Urine WBC (0-5) Ur Epithelial Cells Amorphous Sediment Urine Bacteria Urine Mucus 01/21/21 01/21/21 01/21/21 Range/Units 21:15 21:15 23:29 WBC (4.5-11.0) K/uL RBC (3.30-5.50) M/uL Hgb (12.0-15.0) g/dL Hct (36.0-48.0) % MCV (80-98) fL MCH (27-31) pg MCHC (32-36) % Plt Count (150-400) K/uL Neut % (Auto) (36-66) % Lymph % (Auto) (24-44) % [place] % (Auto) (2-6) % Eos % (Auto) (2-4) % Baso % (Auto) (0-1) % PT (9.5-12.0) sec INR (0.80-1.20) APTT (27.0-36.0) sec Sodium (140-148) mmol/L Potassium (3.6-5.2) mmol/L Chloride (100-108) mmol/L Carbon Dioxide (21-32) mmol/L Anion Gap (5.0-14.0) mmol/L BUN (7-18) mg/dL Creatinine (0.6-1.0) mg/dL Est Cr Clr Drug Dosing mL/min Estimated GFR (MDRD) (>60) Glucose (74-106) mg/dL Lactic Acid (0.4-2.0) mmol/L Calcium (8.5-10.1) mg/dL Total Bilirubin (0.2-1.0) mg/dL Direct Bilirubin (0.0-0.2) mg/dL Indirect Bilirubin AST (15-37) U/L ALT (12-78) U/L Alkaline Phosphatase (46-116) U/L Ammonia 28 (11-32) umol/L Troponin I 0.055 (0.000-0.056) ng/mL NT-Pro-B Natriuret Pep (5-450) pg/mL Total Protein (6.4-8.2) g/dL Albumin (3.4-5.0) g/dL Globulin (2.3-3.5) g/dL Albumin/Globulin Ratio (1.2-2.2) Urine Color Yellow (YELLOW) Urine Appearance Clear (CLEAR) Urine pH 6.0 (5.0-8.0) Ur Specific [place] 1.025 (1.008-1.030) Urine Protein Negative (NEGATIVE) mg/dL Urine Glucose (UA) Negative (NEGATIVE) mg/dL Urine Ketones Negative (NEGATIVE) mg/dL Urine Occult Blood Negative (NEGATIVE) Urine Nitrite Negative (NEGATIVE) Urine Bilirubin Negative (NEGATIVE) Urine Urobilinogen 1.0 (0.2-1.0) EU/dL Ur Leukocyte Esterase Negative (NEGATIVE) Urine RBC 0-5 (0-5) Urine WBC 0-5 (0-5) Ur Epithelial Cells Not seen Amorphous Sediment Not seen Urine Bacteria Few Urine Mucus Not seen 01/22/21 01/22/21 Range/Units 05:30 05:30 WBC (4.5-11.0) K/uL RBC (3.30-5.50) M/uL Hgb (12.0-15.0) g/dL Hct (36.0-48.0) % MCV (80-98) fL MCH (27-31) pg MCHC (32-36) % Plt Count (150-400) K/uL Neut % (Auto) (36-66) % Lymph % (Auto) (24-44) % [place] % (Auto) (2-6) % Eos % (Auto) (2-4) % Baso % (Auto) (0-1) % PT 14.5 H (9.5-12.0) sec INR 1.34 H (0.80-1.20) APTT 37.6 H (27.0-36.0) sec Sodium 138 L (140-148) mmol/L Potassium 3.8 (3.6-5.2) mmol/L Chloride 103 (100-108) mmol/L Carbon Dioxide 26 (21-32) mmol/L Anion Gap 12.8 (5.0-14.0) mmol/L BUN 23 H (7-18) mg/dL Creatinine 1.1 H (0.6-1.0) mg/dL Est Cr Clr Drug Dosing 35.81 mL/min Estimated GFR (MDRD) 48 L (>60) Glucose 92 (74-106) mg/dL Lactic Acid (0.4-2.0) mmol/L Calcium 8.1 L (8.5-10.1) mg/dL Total Bilirubin 2.2 H (0.2-1.0) mg/dL Direct Bilirubin 0.80 H (0.0-0.2) mg/dL Indirect Bilirubin 1.40 AST 73 H (15-37) U/L ALT 44 (12-78) U/L Alkaline Phosphatase 191 H (46-116) U/L Ammonia (11-32) umol/L Troponin I (0.000-0.056) ng/mL NT-Pro-B Natriuret Pep (5-450) pg/mL Total Protein 4.4 L (6.4-8.2) g/dL Albumin 2.4 L (3.4-5.0) g/dL Globulin 2.0 L (2.3-3.5) g/dL Albumin/Globulin Ratio 1.2 (1.2-2.2) Urine Color (YELLOW) Urine Appearance (CLEAR) Urine pH (5.0-8.0) Ur Specific [place] (1.008-1.030) Urine Protein (NEGATIVE) mg/dL Urine Glucose (UA) (NEGATIVE) mg/dL Urine Ketones (NEGATIVE) mg/dL Urine Occult Blood (NEGATIVE) Urine Nitrite (NEGATIVE) Urine Bilirubin (NEGATIVE) Urine Urobilinogen (0.2-1.0) EU/dL Ur Leukocyte Esterase (NEGATIVE) Urine RBC (0-5) Urine WBC (0-5) Ur Epithelial Cells Amorphous Sediment Urine Bacteria Urine Mucus Result Diagrams: 01/21/21 21:15 01/22/21 05:30 Sepsis Event Note - Evaluation Sepsis Screening Result: No Definite Risk - Focused Exam Vital Signs: Vital Signs Temp Pulse Resp BP Pulse Ox 01/22/21 12:05 93 L 01/22/21 11:00 35.9 C L 72 18 126/53 L 91 L 01/22/21 07:31 90 L 01/22/21 07:05 36.4 C 79 18 119/36 L 91 L 01/22/21 03:30 36.1 C 74 18 115/43 L 93 L - Problem List Review Problem List Initiated/Reviewed/Updated: Yes - My Orders Last 24 Hours: My Active Orders 01/22/21 Breakfast 2 Gram Sodium Diet [DIET] 01/22/21 11:45 OT Evaluation and Treatment [CONS] Routine PT Evaluation and Treatment [CONS] Routine 01/22/21 13:52 Antiembolic Devices [RC] .Routine BURAK Hose Substitution [Sequential Compression Device] [OM.PC] Routine 01/22/21 23:15 Avery Catheter Insertion [Insert Urinary Catheter] [OM.PC] Q24H 01/23/21 05:00 BASIC METABOLIC PANEL,BMP [CHEM] Timed CBC W/O DIFF,HEMOGRAM [HEME] Timed (1) 01/23/21 09:00 Furosemide [Lasix] 40 mg IVPUSH BID Spironolactone [Aldactone] 25 mg PO DAILY - Plan Plan:: ASSESSMENT AND PLAN - 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 Needing more frequent and large volume paracentesis procedures. Seems to be slowly declining. She does not feel like she would want to go through surgery for liver transplant even if it was offered given her age and COPD. -Furosemide every 12 hours -spironolactone daily -BURAK stockings to help with lower extremity edema -Albumin every 8 hours -Paracentesis in the morning -Further discussions about hospice versus ongoing invasive interventions COPD-stable. -Medical management Maintenance issues - -DVT prophylaxis-mechanical -GI prophylaxis-not indicated low sodium -Nutrition- -Avery catheter-placed in the emergency room for strict intake and output monitoring Disposition -I anticipate discharge to the assisted after the hospital stay Rene Wright M.D.
[2021-01-23] MEDS: Budesonide 0.5 MG/2 ML Neb Susp NEB SCH ×2 (07:08→21:21)
[2021-01-23] MEDS: Arformoterol 15 MCG/2 ML Neb Soln NEB SCH ×2 (07:09→21:16)
--- NOTE | 2021-01-23 09:01 | PCM.CONS ---
H&P History of Present Illness - General Date of Service: 01/23/21 Admit Problem/Dx: Admission Diagnosis/Problem Admission Diagnosis/Problem Liver failure Source of Information: Patient History Limitations: Reports: No Limitations - History of Present Illness Initial Comments - Free Text/Narative: April will be having a paracentesis today by Brayan Cooper MD. Onset of Symptoms: Reports: Gradual Duration of Symptoms: Reports: Week(s): Location: Reports: Abdomen Quality: Reports: Dull, Pressure, Throbbing Improves with: Reports: Other (paracentesis ) Worsens with: Reports: None Context: Reports: Sick Contact Associated Symptoms: Reports: Loss of Appetite, Malaise right upper flank Pain Score (Numeric/FACES): 4 - Related Data Allergies/Adverse Reactions: Allergies Allergy/AdvReac Type Severity Reaction Status Date / Time venom-honey bee Allergy Severe Difficulty Verified 01/21/21 20:52 [bee venom (honey bee)] Breathing levofloxacin [From Levaquin] Allergy Unknown Other Verified 01/21/21 20:52 sulfamethoxazole AdvReac Intermediate Lightheaded Verified 01/21/21 20:52 [From Bactrim] ness trimethoprim [From Bactrim] AdvReac Intermediate Lightheaded Verified 01/21/21 20:52 ness codeine AdvReac Mild Lightheaded Verified 01/21/21 20:52 ness Home Medications: Home Meds Furosemide [Lasix] 40 mg PO DAILY 11/12/13 [History] Metoprolol Tartrate [Lopressor] 50 mg PO BID 11/12/13 [History] Albuterol Sulfate [Proair Respiclick] 2 puff IH Q4H PRN 12/22/20 [History] Acetaminophen [Tylenol Extra Strength] 500 mg PO ASDIRECTED 12/27/20 [History] Albuterol/Ipratropium [DuoNeb 3.0-0.5 MG/3 ML] 3 ml INH QID PRN 12/27/20 [History] Arformoterol [Brovana] 1 puff INH BID 12/27/20 [History] Budesonide [Pulmicort] 0.5 mg IH BID 12/27/20 [History] Fluticasone Propionate [Flonase] 2 spray NS DAILY 12/27/20 [History] Revefenacin [Yupelri] 1 puff IH DAILY 12/27/20 [History] allopurinoL [Zyloprim] 300 mg PO DAILY 12/27/20 [History] Citalopram Hydrobromide [Celexa] 40 mg PO DAILY 01/10/21 [History] Losartan Potassium [Cozaar] 50 mg PO DAILY 01/10/21 [History] Past Medical History HEENT History: Reports: Cataract, Hard of Hearing, Impaired Vision Other HEENT History: wears glasses Cardiovascular History: Reports: Arrhythmia, Hypertension Respiratory History: Reports: Asthma, COPD, SOB Gastrointestinal History: Reports: Chronic Diarrhea, Colon Polyp, Diverticulosis, Gastritis, GERD, Other (See Below) Other Gastrointestinal History: dysphagia Genitourinary History: Reports: None NURSES AIDE History: Reports: Musculoskeletal History: Reports: Fracture, Gout Neurological History: Reports: TIA Psychiatric History: Reports: Depression Oncologic (Cancer) History: Reports: Other (See Below) 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 Dermatologic History: Reports: Other (See Below) Other Dermatologic History: 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 - Infectious Disease History Infectious Disease History: Reports: Chicken Pox, Measles, Mumps - Past Surgical History HEENT Surgical History: Reports: Adenoidectomy, Cataract Surgery, Eye Surgery, Tonsillectomy GI Surgical History: Reports: Appendectomy, Cholecystectomy, Colonoscopy, EGD, Hernia Repair/Other, Martine Fundoplication, Other (See Below) Other GI Surgeries/Procedures: 12 inches of small intestine removed due to diverticulitis Female Surgical History: Reports: Hysterectomy, Salpingo-Oophorectomy Musculoskeletal Surgical History: Reports: Hip Replacement, Knee Replacement Other Musculoskeletal Surgeries/Procedures:: x3 left knee replacements and Right hip Dermatological Surgical History: Reports: Skin Biopsy Social & Family History - Family History Family Medical History: No Pertinent Family History - Tobacco Use Tobacco Use Status *Q: Never Tobacco User - Caffeine Use Caffeine Use: Reports: Coffee - Recreational Drug Use Recreational Drug Use: No H&P Review of Systems - Review of Systems: Review Of Systems: Comprehensive ROS is negative, except as noted in HPI. Exam - Exam Exam: See Below - Vital Signs Vital Signs: Last Vital Signs Temp 97.8 F 01/23/21 07:00 Pulse 98 01/23/21 07:09 Resp 18 01/23/21 07:00 BP 127/47 L 01/23/21 07:00 Pulse Ox 91 L 01/23/21 07:00 Weight: 181 lb - Exam General: Alert, Oriented, Moderate Distress HEENT: PERRLA Neck: Supple, Trachea Midline Lungs: Decreased Breath Sounds Cardiovascular: Regular Rate GI/Abdominal Exam: Distended (Female) Exam: Deferred Rectal (Female) Exam: Deferred Back Exam: Normal Inspection Extremities: Normal Inspection Skin: Warm, Dry, Intact Neurological: Cranial Nerves Intact Neuro Extensive - Mental Status: Oriented x3, Memory Intact Neuro Extensive - Motor, Sensory, Reflexes: CN II-XII Intact Psychiatric: Alert, Normal Affect, Normal Mood - Patient Data Lab Results Last 24 hrs: Laboratory Results - last 24 hr 01/23/21 01/23/21 Range/Units 04:10 04:10 WBC 7.3 (4.5-11.0) K/uL RBC 3.03 L (3.30-5.50) M/uL Hgb 10.5 L D (12.0-15.0) g/dL Hct 30.6 L (36.0-48.0) % MCV 101 H (80-98) fL MCH 35 H (27-31) pg MCHC 34 (32-36) % Plt Count 138 L (150-400) K/uL Sodium 139 L (140-148) mmol/L Potassium 3.8 (3.6-5.2) mmol/L Chloride 102 (100-108) mmol/L Carbon Dioxide 27 (21-32) mmol/L Anion Gap 13.8 (5.0-14.0) mmol/L BUN 24 H (7-18) mg/dL Creatinine 1.1 H (0.6-1.0) mg/dL Est Cr Clr Drug Dosing 35.81 mL/min Estimated GFR (MDRD) 48 L (>60) Glucose 82 (74-106) mg/dL Calcium 7.9 L (8.5-10.1) mg/dL Result Diagrams: 01/23/21 04:10 01/23/21 04:10 Sepsis Event Note - Evaluation Sepsis Screening Result: No Definite Risk - Focused Exam Vital Signs: Vital Signs Temp Pulse Resp BP Pulse Ox 01/23/21 07:09 98 01/23/21 07:00 97.8 F 101 H 18 127/47 L 91 L 01/23/21 03:00 97.7 F 99 16 132/50 L 90 L 01/22/21 23:50 126/54 L 01/22/21 23:02 97.6 F 92 16 199/39 H 94 L Consult PN Assessment/Plan Procedures: Procedures ABD PARACENTESIS W/IMAGING (12/28/20) AIRWAY INHALATION TREATMENT (12/22/20) ASSAY OF AMYLASE (12/28/20) ASSAY OF LACTIC ACID (12/22/20) ASSAY OF LIPASE (10/08/16) ASSAY OF MAGNESIUM (05/23/15) ASSAY OF NATRIURETIC PEPTIDE (07/31/20) ASSAY OF PHOSPHORUS (05/23/15) ASSAY OF PROTEIN OTHER (12/28/20) ASSAY OF SERUM ALBUMIN (12/28/20) ASSAY OF TROPONIN QUANT (08/02/19) ASSAY PH BODY FLUID NOS (12/28/20) BODY FLUID CELL COUNT (12/28/20) BONE IMAGING 3 PHASE (11/06/17) C DIFF AMPLIFIED PROBE (02/25/17) CARDIOVASCULAR STRESS TEST (05/15/18) CARPAL TUNNEL SURGERY (09/27/14) CHEST X-RAY 2VW FRONTAL&LATL (05/23/15) COMP SCREEN MAMMOGRAM ADD-ON (01/29/16) COMPLETE CBC AUTOMATED (05/23/15) COMPLETE CBC W/AUTO DIFF WBC (10/08/16) COMPREHEN METABOLIC PANEL (10/08/16) CORRECT RECTAL PROLAPSE (11/17/13) CT ABD & PELV W/CONTRAST (10/08/16) CT ANGIOGRAPHY CHEST (12/22/20) CT HEAD/BRAIN W/O DYE (07/12/16) CULTURE AEROBIC IDENTIFY (12/22/20) CULTURE OTHR SPECIMN AEROBIC (12/28/20) CULTURE SCREEN ONLY (05/04/15) CYTOPATH CELL ENHANCE TECH (12/28/20) ECHO EXAM OF ABDOMEN (12/28/20) EGD BIOPSY SINGLE/MULTIPLE (05/04/15) ELECTROCARDIOGRAM REPORT (05/23/15) ELECTROCARDIOGRAM TRACING (05/23/15) EMERGENCY DEPT VISIT (12/22/20) EMERGENCY DEPT VISIT (12/22/20) EMERGENCY DEPT VISIT (10/08/16) EMERGENCY DEPT VISIT (01/27/15) EVALUATION OF WHEEZING (07/08/14) FIBRIN DEGRADATION QUANT (12/22/20) FUNGUS ISOLATION CULTURE (12/28/20) GLUCOSE OTHER FLUID (12/28/20) HT MUSCLE IMAGE SPECT MULT (05/15/18) HYDRATE IV INFUSION ADD-ON (10/08/16) IMMUNOASSAY TUMOR OTHER (12/28/20) INCISE FINGER TENDON SHEATH (07/16/16) LACTATE (LD) (LDH) ENZYME (12/28/20) MANUAL THERAPY 1/> REGIONS (05/01/17) MEASURE BLOOD OXYGEN LEVEL (05/23/15) METABOLIC PANEL TOTAL CA (05/23/15) MOTION FLUOROSCOPY/SWALLOW (05/09/15) MRI BRAIN STEM W/O & W/DYE (08/13/19) MRI BRAIN STEM W/O DYE (07/22/16) MRI JNT OF LWR EXTRE W/O DYE (03/25/19) MRI JOINT UPR EXTREM W/O DYE (05/25/18) MYCOBACTERIA CULTURE (12/28/20) PT EVAL MOD COMPLEX 30 MIN (05/01/17) REMOVE INT/EXT HEM 1 GROUP (11/17/13) ROUTINE VENIPUNCTURE (12/28/20) SMEAR FLUORESCENT/ACID STAI (12/28/20) SMEAR GRAM STAIN (12/28/20) SPECIAL STAINS GROUP 2 (05/23/15) SPECIMEN INFECT AGNT CONCNTJ (12/28/20) THER/PROPH/DIAG INJ IV PUSH (10/08/16) THER/PROPH/DIAG INJ SC/IM (11/17/13) TISSUE EXAM BY PATHOLOGIST (12/28/20) TISSUE EXAM BY PATHOLOGIST (05/23/15) TISSUE EXAM BY PATHOLOGIST (05/23/15) TISSUE EXAM BY PATHOLOGIST (11/17/13) TISSUE EXAM BY PATHOLOGIST (11/17/13) TISSUE EXAM FOR FUNGI (12/28/20) TTE W/DOPPLER COMPLETE (11/18/16) TX/PRO/DX INJ NEW DRUG ADDON (10/08/16) ULTRASOUND THERAPY (05/01/17) URINALYSIS AUTO W/SCOPE (10/08/16) US EXAM ABDO BACK WALL COMP (11/21/14) X-RAY EXAM OF FOREARM (01/27/15) X-RAY EXAM OF HAND (01/27/15) X-RAY XM SWLNG FUNCJ C+ (05/09/15) Problem List Initiated/Reviewed/Updated: Yes My Orders Last 24 Hours: My Active Orders 01/23/21 09:00 Verify Patient Consent Obtain [RC] ASDIRECTED Plan: After preoperative procedure patient wishes to proceed with surgical procedure . Orders to be written after procedure.
[2021-01-23] MEDS: Citalopram 20 MG Tab PO SCH (09:53)
[2021-01-23] MEDS: Spironolactone 25 MG Tab PO SCH (09:53)
[2021-01-23] MEDS: Allopurinol 100 MG Tab PO SCH (09:53)
[2021-01-23] MEDS: Furosemide 40 MG/4 ML VIAL IVPUSH SCH ×2 (09:53→21:18)
--- NOTE | 2021-01-23 15:27 | PCM.PN ---
- General Info Date of Service: 01/23/21 Subjective Update: There were no acute events overnight. Patient reports that she feels better today. She thinks her strength is better. She thinks her appetite is a little better though she still not eating very much. She does not report any abdominal pain today. She did have an ultrasound this morning to mannie her ascites for paracentesis but only a small quantity of ascites was noted so the paracentesis was aborted. Lower extremity edema is better with the compression socks but not resolved. Vital signs have been stable and she is not having any fevers. - Patient Data Vitals - Most Recent: Last Vital Signs Temp 36.6 C 01/23/21 14:48 Pulse 104 H 01/23/21 14:48 Resp 18 01/23/21 14:48 BP 135/46 L 01/23/21 14:48 Pulse Ox 93 L 01/23/21 14:48 Weight - Most Recent: 82.1 kg I&O - Last 24 Hours: Intake & Output 01/23/21 01/23/21 01/23/21 06:59 14:59 22:59 Intake Total 340 900 Output Total 65 Balance -294 916 Lab Results Last 24 Hours: Laboratory Results - last 24 hr 01/23/21 01/23/21 Range/Units 04:10 04:10 WBC 7.3 (4.5-11.0) K/uL RBC 3.03 L (3.30-5.50) M/uL Hgb 10.5 L D (12.0-15.0) g/dL Hct 30.6 L (36.0-48.0) % MCV 101 H (80-98) fL MCH 35 H (27-31) pg MCHC 34 (32-36) % Plt Count 138 L (150-400) K/uL Sodium 139 L (140-148) mmol/L Potassium 3.8 (3.6-5.2) mmol/L Chloride 102 (100-108) mmol/L Carbon Dioxide 27 (21-32) mmol/L Anion Gap 13.8 (5.0-14.0) mmol/L BUN 24 H (7-18) mg/dL Creatinine 1.1 H (0.6-1.0) mg/dL Est Cr Clr Drug Dosing 35.81 mL/min Estimated GFR (MDRD) 48 L (>60) Glucose 82 (74-106) mg/dL Calcium 7.9 L (8.5-10.1) mg/dL Med Orders - Current: Current Medications Albuterol (Albuterol 0.083% 2.5 Mg/3 Ml Neb Soln) 2.5 mg NEB Q2H PRN PRN Reason: Cough Allopurinol (Allopurinol 100 Mg Tab) 100 mg PO DAILY [facility] Last Admin: 01/23/21 09:53 Dose: 100 mg Documented by: Arformoterol Tartrate (Arformoterol 15 Mcg/2 Ml Neb Soln) 15 mcg NEB BIDRT [facility] Last Admin: 01/23/21 07:09 Dose: 15 mcg Documented by: Budesonide (Budesonide 0.5 Mg/2 Ml Neb Susp) 0.5 mg NEB BIDRT [facility] Last Admin: 01/23/21 07:08 Dose: 0.5 mg Documented by: Citalopram Hydrobromide (Citalopram 20 Mg Tab) 40 mg PO DAILY [facility] Last Admin: 01/23/21 09:53 Dose: 40 mg Documented by: Furosemide (Furosemide 40 Mg/4 Ml Vial) 40 mg IVPUSH BID [facility] Last Admin: 01/23/21 09:53 Dose: 40 mg Documented by: Promethazine HCl 6.25 mg/ (Sodium Chloride) 50.25 mls @ 200 mls/hr IV Q6H PRN PRN Reason: Nausea/Vomiting Albumin Human (Albumin 25%) 25 gm in 100 mls @ 25 mls/hr IV Q8H [facility] Stop: 01/24/21 02:59 Last Admin: 01/23/21 07:42 Dose: 25 mls/hr Documented by: Morphine Sulfate (Morphine 2 Mg/Ml Syringe) 1 mg IVPUSH Q2H PRN PRN Reason: Pain (severe 7-10) Ondansetron HCl (Ondansetron 4 Mg Tab.Dis) 4 mg PO Q6H PRN PRN Reason: Nausea able to take PO Ondansetron HCl (Ondansetron 4 Mg/2 Ml Sdv) 4 mg IV Q4H PRN PRN Reason: Nausea/Vomiting Sodium Chloride (Sodium Chloride 0.9% 10 Ml Syringe) 10 ml FLUSH ASDIRECTED PRN PRN Reason: Keep Vein Open Last Admin: 01/21/21 22:08 Dose: 10 ml Documented by: Spironolactone (Spironolactone 25 Mg Tab) 25 mg PO DAILY [facility] Last Admin: 01/23/21 09:53 Dose: 25 mg Documented by: Discontinued Medications Albuterol/Ipratropium (Albuterol/Ipratropium 3.0-0.5 Mg/3 Ml Neb Soln) 3 ml NEB Q4H PRN PRN Reason: Cough Furosemide (Furosemide 40 Mg/4 Ml Vial) 40 mg IVPUSH ONETIME ONE Stop: 01/21/21 23:06 Last Admin: 01/21/21 23:33 Dose: 40 mg Documented by: Furosemide (Furosemide 40 Mg/4 Ml Vial) 40 mg IVPUSH Q6HR [facility] Last Admin: 01/22/21 05:39 Dose: 40 mg Documented by: Furosemide (Furosemide 40 Mg/4 Ml Vial) 40 mg IVPUSH Q6H [facility] Last Admin: 01/22/21 12:21 Dose: 40 mg Documented by: Albumin Human (Albumin 25%) 25 gm in 100 mls @ 25 mls/hr IV ONETIME ONE Stop: 01/22/21 05:29 Last Admin: 01/22/21 00:49 Dose: 25 mls/hr Documented by: Spironolactone (Spironolactone 25 Mg Tab) 100 mg PO ONETIME ONE Stop: 01/22/21 00:00 Last Admin: 01/22/21 00:48 Dose: 100 mg Documented by: - Exam Quality Assessment: No: Supplemental Oxygen Urinary Catheter Total Time: 1Days 12Hours General: Alert, Oriented, Cooperative, No Acute Distress Lungs: Clear to Auscultation, Normal Respiratory Effort Cardiovascular: Regular Rate, Regular Rhythm GI/Abdominal Exam: Normal Bowel Sounds, Soft, No Distention, Tender (Mild generalized) Extremities: Pedal Edema. No: Increased Warmth Skin: Warm, Dry Psy/Mental Status: Alert, Normal Affect - Patient Data Lab Results Last 24 hrs: Laboratory Results - last 24 hr 01/23/21 01/23/21 Range/Units 04:10 04:10 WBC 7.3 (4.5-11.0) K/uL RBC 3.03 L (3.30-5.50) M/uL Hgb 10.5 L D (12.0-15.0) g/dL Hct 30.6 L (36.0-48.0) % MCV 101 H (80-98) fL MCH 35 H (27-31) pg MCHC 34 (32-36) % Plt Count 138 L (150-400) K/uL Sodium 139 L (140-148) mmol/L Potassium 3.8 (3.6-5.2) mmol/L Chloride 102 (100-108) mmol/L Carbon Dioxide 27 (21-32) mmol/L Anion Gap 13.8 (5.0-14.0) mmol/L BUN 24 H (7-18) mg/dL Creatinine 1.1 H (0.6-1.0) mg/dL Est Cr Clr Drug Dosing 35.81 mL/min Estimated GFR (MDRD) 48 L (>60) Glucose 82 (74-106) mg/dL Calcium 7.9 L (8.5-10.1) mg/dL Result Diagrams: 01/23/21 04:10 01/23/21 04:10 Sepsis Event Note - Evaluation Sepsis Screening Result: No Definite Risk - Focused Exam Vital Signs: Vital Signs Temp Pulse Resp BP Pulse Ox 01/23/21 14:48 36.6 C 104 H 18 135/46 L 93 L 01/23/21 10:48 36.4 C 99 18 132/55 L 93 L 01/23/21 07:09 98 01/23/21 07:00 36.6 C 101 H 18 127/47 L 91 L - Problem List Review Problem List Initiated/Reviewed/Updated: Yes - My Orders Last 24 Hours: My Active Orders 01/22/21 15:00 Albumin Human [Albumin 25%] 25 gm in 100 ml IV Q8H 01/23/21 09:00 Furosemide [Lasix] 40 mg IVPUSH BID Spironolactone [Aldactone] 25 mg PO DAILY 01/23/21 10:24 Dietary Supplements [RC] TIDAC 01/23/21 Dinner Regular Diet [DIET] 01/23/21 23:15 Avery Catheter Insertion [Insert Urinary Catheter] [OM.PC] Q24H 01/24/21 05:00 BASIC METABOLIC PANEL,BMP [CHEM] Timed - Plan Plan:: ASSESSMENT AND PLAN - 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 Doing well so far with diuresis. Edema improving. Ascites is only small volume at this time. Appetite a little better. Kidney function stable. -Furosemide every 12 hours -spironolactone daily -BURAK stockings to help with lower extremity edema -Albumin every 8 hours -Paracentesis as indicated if ascites increases -Further discussions about hospice versus ongoing invasive interventions Stage III chronic kidney disease-creatinine stable with diuresis so far. -Strict intake and output monitoring and daily labs COPD-stable. -Medical management Maintenance issues - -DVT prophylaxis-mechanical -GI prophylaxis-not indicated -Nutrition-regular -Avery catheter-placed in the emergency room for strict intake and output monitoring, this will remain in place with gentle diuresis in the setting of end-stage liver disease and stage III kidney disease. Disposition -I anticipate discharge to the [facility] after the hospital stay Rene Wright M.D.
[2021-01-24] MEDS: Arformoterol 15 MCG/2 ML Neb Soln NEB SCH ×2 (07:39→21:22)
[2021-01-24] MEDS: Budesonide 0.5 MG/2 ML Neb Susp NEB SCH ×2 (07:39→21:23)
--- NOTE | 2021-01-24 08:52 | PN ---
DATE OF SERVICE: 01/24/2021 April was unable to have a paracentesis. Ultrasound showed small amount of insufficient fluid collection, so paracentesis was canceled. Further orders per Ace Wright MD, Hspitalist. Surgery will sign off the patient's case and to be notified if needed for any further services. Alisa Herring PA-C /[phone]
[2021-01-24] MEDS: Allopurinol 100 MG Tab PO SCH (09:18)
[2021-01-24] MEDS: Citalopram 20 MG Tab PO SCH (09:19)
[2021-01-24] MEDS: Spironolactone 25 MG Tab PO SCH (09:19)
[2021-01-24] MEDS: Furosemide 40 MG/4 ML VIAL IVPUSH SCH ×3 (09:19→23:48)
[2021-01-24] MEDS ORDERED: Acetaminophen 325 MG Tab PO PRN (11:54)
[2021-01-24] MEDS ORDERED: traMADol 50 MG Tab PO PRN (11:55)
--- NOTE | 2021-01-24 11:57 | PCM.PN ---
- General Info Date of Service: 01/24/21 Subjective Update: There were no acute events overnight. Patient reports very mild right lower quadrant abdominal pain. Bowels are moving. No significant shortness of breath. Lower extremity edema persists but is improving. No fevers. Appetite slightly better. Strength and energy slightly better. Kidney function stable. Functional Status: Reports: Pain Controlled, Tolerating Diet - Review of Systems General: Reports: Weakness Gastrointestinal: Reports: Abdominal Pain - Patient Data Vitals - Most Recent: Last Vital Signs Temp 36.4 C 01/24/21 10:59 Pulse 104 H 01/24/21 10:59 Resp 16 01/24/21 10:59 BP 145/60 H 01/24/21 10:59 Pulse Ox 95 01/24/21 10:59 Weight - Most Recent: 82.1 kg I&O - Last 24 Hours: Intake & Output 01/23/21 01/24/21 01/24/21 22:59 06:59 14:59 Intake Total 340 360 Output Total 100 1750 Balance -66 -1750 376 Lab Results Last 24 Hours: Laboratory Results - last 24 hr 01/24/21 Range/Units 05:00 Sodium 139 L (140-148) mmol/L Potassium 3.9 (3.6-5.2) mmol/L Chloride 101 (100-108) mmol/L Carbon Dioxide 27 (21-32) mmol/L Anion Gap 14.9 H (5.0-14.0) mmol/L BUN 22 H (7-18) mg/dL Creatinine 1.0 (0.6-1.0) mg/dL Est Cr Clr Drug Dosing 39.39 mL/min Estimated GFR (MDRD) 53 L (>60) Glucose 81 (74-106) mg/dL Calcium 8.2 L (8.5-10.1) mg/dL Med Orders - Current: Current Medications Acetaminophen (Acetaminophen 325 Mg Tab) 650 mg PO Q4H PRN PRN Reason: Pain/Fever Albuterol (Albuterol 0.083% 2.5 Mg/3 Ml Neb Soln) 2.5 mg NEB Q2H PRN PRN Reason: Cough Last Admin: 01/23/21 17:50 Dose: 2.5 mg Documented by: Allopurinol (Allopurinol 100 Mg Tab) 100 mg PO DAILY [facility] Last Admin: 01/24/21 09:18 Dose: 100 mg Documented by: Arformoterol Tartrate (Arformoterol 15 Mcg/2 Ml Neb Soln) 15 mcg NEB BIDRT [facility] Last Admin: 01/24/21 07:39 Dose: 15 mcg Documented by: Budesonide (Budesonide 0.5 Mg/2 Ml Neb Susp) 0.5 mg NEB BIDRT [facility] Last Admin: 01/24/21 07:39 Dose: 0.5 mg Documented by: Citalopram Hydrobromide (Citalopram 20 Mg Tab) 40 mg PO DAILY [facility] Last Admin: 01/24/21 09:19 Dose: 40 mg Documented by: Furosemide (Furosemide 40 Mg/4 Ml Vial) 40 mg IVPUSH Q8H [facility] Promethazine HCl 6.25 mg/ (Sodium Chloride) 50.25 mls @ 200 mls/hr IV Q6H PRN PRN Reason: Nausea/Vomiting Morphine Sulfate (Morphine 2 Mg/Ml Syringe) 1 mg IVPUSH Q2H PRN PRN Reason: Pain (severe 7-10) Ondansetron HCl (Ondansetron 4 Mg Tab.Dis) 4 mg PO Q6H PRN PRN Reason: Nausea able to take PO Ondansetron HCl (Ondansetron 4 Mg/2 Ml Sdv) 4 mg IV Q4H PRN PRN Reason: Nausea/Vomiting Sodium Chloride (Sodium Chloride 0.9% 10 Ml Syringe) 10 ml FLUSH ASDIRECTED PRN PRN Reason: Keep Vein Open Last Admin: 01/21/21 22:08 Dose: 10 ml Documented by: Spironolactone (Spironolactone 25 Mg Tab) 25 mg PO DAILY [facility] Last Admin: 01/24/21 09:19 Dose: 25 mg Documented by: Tramadol HCl (Tramadol 50 Mg Tab) 50 mg PO Q6H PRN PRN Reason: Pain Discontinued Medications Albuterol/Ipratropium (Albuterol/Ipratropium 3.0-0.5 Mg/3 Ml Neb Soln) 3 ml NEB Q4H PRN PRN Reason: Cough Furosemide (Furosemide 40 Mg/4 Ml Vial) 40 mg IVPUSH ONETIME ONE Stop: 01/21/21 23:06 Last Admin: 01/21/21 23:33 Dose: 40 mg Documented by: Furosemide (Furosemide 40 Mg/4 Ml Vial) 40 mg IVPUSH Q6HR [facility] Last Admin: 01/22/21 05:39 Dose: 40 mg Documented by: Furosemide (Furosemide 40 Mg/4 Ml Vial) 40 mg IVPUSH Q6H [facility] Last Admin: 01/22/21 12:21 Dose: 40 mg Documented by: Furosemide (Furosemide 40 Mg/4 Ml Vial) 40 mg IVPUSH BID [facility] Last Admin: 01/24/21 09:19 Dose: 40 mg Documented by: Albumin Human (Albumin 25%) 25 gm in 100 mls @ 25 mls/hr IV ONETIME ONE Stop: 01/22/21 05:29 Last Admin: 01/22/21 00:49 Dose: 25 mls/hr Documented by: Albumin Human (Albumin 25%) 25 gm in 100 mls @ 25 mls/hr IV Q8H [facility] Stop: 01/24/21 02:59 Last Admin: 01/23/21 22:30 Dose: 25 mls/hr Documented by: Spironolactone (Spironolactone 25 Mg Tab) 100 mg PO ONETIME ONE Stop: 01/22/21 00:00 Last Admin: 01/22/21 00:48 Dose: 100 mg Documented by: - Exam Quality Assessment: No: Supplemental Oxygen Urinary Catheter Total Time: 2Days 10Hours General: Alert, Oriented, Cooperative, No Acute Distress Lungs: Normal Respiratory Effort Cardiovascular: Regular Rate, Regular Rhythm GI/Abdominal Exam: Soft, No Distention Extremities: Pedal Edema. No: Increased Warmth Psy/Mental Status: Alert, Normal Affect - Patient Data Lab Results Last 24 hrs: Laboratory Results - last 24 hr 01/24/21 Range/Units 05:00 Sodium 139 L (140-148) mmol/L Potassium 3.9 (3.6-5.2) mmol/L Chloride 101 (100-108) mmol/L Carbon Dioxide 27 (21-32) mmol/L Anion Gap 14.9 H (5.0-14.0) mmol/L BUN 22 H (7-18) mg/dL Creatinine 1.0 (0.6-1.0) mg/dL Est Cr Clr Drug Dosing 39.39 mL/min Estimated GFR (MDRD) 53 L (>60) Glucose 81 (74-106) mg/dL Calcium 8.2 L (8.5-10.1) mg/dL Result Diagrams: 01/23/21 04:10 01/24/21 05:00 Sepsis Event Note - Evaluation Sepsis Screening Result: No Definite Risk - Focused Exam Vital Signs: Vital Signs Temp Pulse Resp BP Pulse Ox 01/24/21 10:59 36.4 C 104 H 16 145/60 H 95 01/24/21 07:54 36.3 C 86 16 132/52 L 94 L 01/24/21 02:50 37.1 C 79 16 142/57 H 90 L - Problem List Review Problem List Initiated/Reviewed/Updated: Yes - My Orders Last 24 Hours: My Active Orders 01/23/21 Dinner Regular Diet [DIET] 01/24/21 11:54 Acetaminophen [TylenoL] 650 mg PO Q4H PRN 01/24/21 11:55 traMADol [Ultram] 50 mg PO Q6H PRN 01/24/21 16:00 Furosemide [Lasix] 40 mg IVPUSH Q8H 01/24/21 23:15 Avery Catheter Insertion [Insert Urinary Catheter] [OM.PC] Q24H - Plan Plan:: ASSESSMENT AND PLAN - 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 Tolerating diuresis and edema steadily improving. Appetite and strength slowly improving. -Furosemide every 8 hours -spironolactone daily -BURAK stockings to help with lower extremity edema -Albumin x2 doses today -Paracentesis as indicated if ascites increases -Further discussions about hospice versus ongoing invasive interventions Stage III chronic kidney disease-creatinine stable with diuresis so far. -Strict intake and output monitoring and daily labs COPD-stable. -Medical management Maintenance issues - -DVT prophylaxis-mechanical -GI prophylaxis-not indicated -Nutrition-regular -Avery catheter-placed in the emergency room for strict intake and output monitoring, this will remain in place with gentle diuresis in the setting of end-stage liver disease and stage III kidney disease. I anticipate this can be removed tomorrow Disposition -I anticipate discharge to the snf after the hospital stay Rene Wright M.D.
[2021-01-25] MEDS: Arformoterol 15 MCG/2 ML Neb Soln NEB SCH ×2 (07:07→21:24)
[2021-01-25] MEDS: Budesonide 0.5 MG/2 ML Neb Susp NEB SCH ×2 (07:07→21:31)
[2021-01-25] MEDS: Furosemide 40 MG/4 ML VIAL IVPUSH SCH (07:58)
[2021-01-25] MEDS: Spironolactone 25 MG Tab PO SCH ×2 (08:00→13:54)
[2021-01-25] MEDS: Citalopram 20 MG Tab PO SCH (08:00)
[2021-01-25] MEDS: Allopurinol 100 MG Tab PO SCH (08:00)
[2021-01-25] MEDS ORDERED: Potassium Chloride 20 MEQ Tab.ER PO ONE (08:10)
--- NOTE | 2021-01-25 12:33 | PCM.PN ---
- General Info Date of Service: 01/25/21 Subjective Update: No acute events overnight. Strength and energy are slowly improving. Edema is better with diuresis. Appetite is a little better today. Not sleeping well. Able to ambulate a little further down the hallway today than yesterday. No fevers. Still has some mild right lower quadrant abdominal pain. Functional Status: Reports: Pain Controlled, Tolerating Diet - Review of Systems General: Reports: Weakness. Denies: Fever Cardiovascular: Reports: Edema Gastrointestinal: Reports: Abdominal Pain - Patient Data Vitals - Most Recent: Last Vital Signs Temp 36.4 C 01/25/21 10:53 Pulse 59 L 01/25/21 10:53 Resp 16 01/25/21 10:53 BP 150/56 H 01/25/21 10:53 Pulse Ox 95 01/25/21 10:53 Weight - Most Recent: 82.1 kg I&O - Last 24 Hours: Intake & Output 01/24/21 01/25/21 01/25/21 22:59 06:59 14:59 Intake Total 360 340 300 Output Total 55 1850 Balance -19 -[phone] Lab Results Last 24 Hours: Laboratory Results - last 24 hr 01/25/21 01/25/21 Range/Units 05:13 05:13 WBC 7.6 (4.5-11.0) K/uL RBC 2.96 L (3.30-5.50) M/uL Hgb 10.4 L (12.0-15.0) g/dL Hct 29.7 L (36.0-48.0) % MCV 100 H (80-98) fL MCH 35 H (27-31) pg MCHC 35 (32-36) % Plt Count 136 L (150-400) K/uL Sodium 140 (140-148) mmol/L Potassium 3.4 L (3.6-5.2) mmol/L Chloride 100 (100-108) mmol/L Carbon Dioxide 28 (21-32) mmol/L Anion Gap 15.4 H (5.0-14.0) mmol/L BUN 22 H (7-18) mg/dL Creatinine 1.0 (0.6-1.0) mg/dL Est Cr Clr Drug Dosing 39.39 mL/min Estimated GFR (MDRD) 53 L (>60) Glucose 84 (74-106) mg/dL Calcium 8.4 L (8.5-10.1) mg/dL Med Orders - Current: Current Medications Acetaminophen (Acetaminophen 325 Mg Tab) 650 mg PO Q4H PRN PRN Reason: Pain/Fever Albuterol (Albuterol 0.083% 2.5 Mg/3 Ml Neb Soln) 2.5 mg NEB Q2H PRN PRN Reason: Cough Last Admin: 01/23/21 17:50 Dose: 2.5 mg Documented by: Allopurinol (Allopurinol 100 Mg Tab) 100 mg PO DAILY [facility] Last Admin: 01/25/21 08:00 Dose: 100 mg Documented by: Arformoterol Tartrate (Arformoterol 15 Mcg/2 Ml Neb Soln) 15 mcg NEB BIDRT [facility] Last Admin: 01/25/21 07:07 Dose: 15 mcg Documented by: Budesonide (Budesonide 0.5 Mg/2 Ml Neb Susp) 0.5 mg NEB BIDRT [facility] Last Admin: 01/25/21 07:07 Dose: 0.5 mg Documented by: Citalopram Hydrobromide (Citalopram 20 Mg Tab) 40 mg PO DAILY [facility] Last Admin: 01/25/21 08:00 Dose: 40 mg Documented by: Promethazine HCl 6.25 mg/ (Sodium Chloride) 50.25 mls @ 200 mls/hr IV Q6H PRN PRN Reason: Nausea/Vomiting Ondansetron HCl (Ondansetron 4 Mg Tab.Dis) 4 mg PO Q6H PRN PRN Reason: Nausea able to take PO Ondansetron HCl (Ondansetron 4 Mg/2 Ml Sdv) 4 mg IV Q4H PRN PRN Reason: Nausea/Vomiting Sodium Chloride (Sodium Chloride 0.9% 10 Ml Syringe) 10 ml FLUSH ASDIRECTED PRN PRN Reason: Keep Vein Open Last Admin: 01/21/21 22:08 Dose: 10 ml Documented by: Tramadol HCl (Tramadol 50 Mg Tab) 50 mg PO Q6H PRN PRN Reason: Pain Discontinued Medications Albuterol/Ipratropium (Albuterol/Ipratropium 3.0-0.5 Mg/3 Ml Neb Soln) 3 ml NEB Q4H PRN PRN Reason: Cough Furosemide (Furosemide 40 Mg/4 Ml Vial) 40 mg IVPUSH ONETIME ONE Stop: 01/21/21 23:06 Last Admin: 01/21/21 23:33 Dose: 40 mg Documented by: Furosemide (Furosemide 40 Mg/4 Ml Vial) 40 mg IVPUSH Q6HR [facility] Last Admin: 01/22/21 05:39 Dose: 40 mg Documented by: Furosemide (Furosemide 40 Mg/4 Ml Vial) 40 mg IVPUSH Q6H [facility] Last Admin: 01/22/21 12:21 Dose: 40 mg Documented by: Furosemide (Furosemide 40 Mg/4 Ml Vial) 40 mg IVPUSH BID [facility] Last Admin: 01/24/21 09:19 Dose: 40 mg Documented by: Furosemide (Furosemide 40 Mg/4 Ml Vial) 40 mg IVPUSH Q8H [facility] Last Admin: 01/25/21 07:58 Dose: 40 mg Documented by: Albumin Human (Albumin 25%) 25 gm in 100 mls @ 25 mls/hr IV ONETIME ONE Stop: 01/22/21 05:29 Last Admin: 01/22/21 00:49 Dose: 25 mls/hr Documented by: Albumin Human (Albumin 25%) 25 gm in 100 mls @ 25 mls/hr IV Q8H [facility] Stop: 01/24/21 02:59 Last Admin: 01/23/21 22:30 Dose: 25 mls/hr Documented by: Albumin Human (Albumin 25%) 25 gm in 100 mls @ 25 mls/hr IV Q8H [facility] Stop: 01/25/21 03:59 Last Admin: 01/24/21 23:48 Dose: 25 mls/hr Documented by: Morphine Sulfate (Morphine 2 Mg/Ml Syringe) 1 mg IVPUSH Q2H PRN PRN Reason: Pain (severe 7-10) Potassium Chloride (Potassium Chloride 20 Meq Tab.Er) 40 meq PO ONETIME ONE Stop: 01/25/21 08:11 Last Admin: 01/25/21 08:39 Dose: 40 meq Documented by: Spironolactone (Spironolactone 25 Mg Tab) 100 mg PO ONETIME ONE Stop: 01/22/21 00:00 Last Admin: 01/22/21 00:48 Dose: 100 mg Documented by: Spironolactone (Spironolactone 25 Mg Tab) 25 mg PO DAILY [facility] Last Admin: 01/25/21 08:00 Dose: 25 mg Documented by: - Exam Quality Assessment: No: Supplemental Oxygen Urinary Catheter Total Time: 3Days 10Hours General: Alert, Oriented, Cooperative, No Acute Distress Lungs: Normal Respiratory Effort. No: Wheezing Cardiovascular: Regular Rhythm, Tachycardia GI/Abdominal Exam: Soft, No Distention Extremities: Pedal Edema. No: Increased Warmth Skin: Warm, Dry Psy/Mental Status: Alert, Normal Affect - Patient Data Lab Results Last 24 hrs: Laboratory Results - last 24 hr 01/25/21 01/25/21 Range/Units 05:13 05:13 WBC 7.6 (4.5-11.0) K/uL RBC 2.96 L (3.30-5.50) M/uL Hgb 10.4 L (12.0-15.0) g/dL Hct 29.7 L (36.0-48.0) % MCV 100 H (80-98) fL MCH 35 H (27-31) pg MCHC 35 (32-36) % Plt Count 136 L (150-400) K/uL Sodium 140 (140-148) mmol/L Potassium 3.4 L (3.6-5.2) mmol/L Chloride 100 (100-108) mmol/L Carbon Dioxide 28 (21-32) mmol/L Anion Gap 15.4 H (5.0-14.0) mmol/L BUN 22 H (7-18) mg/dL Creatinine 1.0 (0.6-1.0) mg/dL Est Cr Clr Drug Dosing 39.39 mL/min Estimated GFR (MDRD) 53 L (>60) Glucose 84 (74-106) mg/dL Calcium 8.4 L (8.5-10.1) mg/dL Result Diagrams: 01/25/21 05:13 01/25/21 05:13 Sepsis Event Note - Evaluation Sepsis Screening Result: No Definite Risk - Focused Exam Vital Signs: Vital Signs Temp Pulse Resp BP Pulse Ox 01/25/21 10:53 36.4 C 59 L 16 150/56 H 95 01/25/21 07:00 36.4 C 104 H 16 146/63 H 96 01/25/21 02:37 37.1 C 123 H 16 150/52 H 91 L - Problem List Review Problem List Initiated/Reviewed/Updated: Yes - My Orders Last 24 Hours: My Active Orders 01/24/21 11:54 Acetaminophen [TylenoL] 650 mg PO Q4H PRN 01/24/21 11:55 traMADol [Ultram] 50 mg PO Q6H PRN 01/24/21 16:00 Furosemide [Lasix] 40 mg IVPUSH Q8H 01/25/21 12:32 DC Avery Catheter [Urinary Catheter Removal] [RC] PER UNIT ROUTINE 01/25/21 14:00 Furosemide [Lasix] 40 mg PO BIDDIURETIC Spironolactone [Aldactone] 25 mg PO BIDDIURETIC 01/26/21 05:00 BASIC METABOLIC PANEL,BMP [CHEM] Timed - Plan Plan:: ASSESSMENT AND PLAN - 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 Tolerating diuresis and continues to steadily improve. Still weak and not eating well but getting better each day. -Furosemide twice daily on diuretic schedule -spironolactone twice daily on diuretic schedule -BURAK stockings to help with lower extremity edema -Albumin complete -Paracentesis as indicated if ascites increases -Further discussions about hospice versus ongoing invasive interventions -Physical therapy Stage III chronic kidney disease-creatinine stable with diuresis so far. -Strict intake and output monitoring and daily labs COPD-stable. -Medical management Maintenance issues - -DVT prophylaxis-mechanical -GI prophylaxis-not indicated -Nutrition-regular -Avery catheter-will be removed today Disposition -I anticipate discharge to the [facility] after the hospital stay Rene Wright M.D.
[2021-01-25] MEDS: Furosemide 40 MG Tab PO SCH (13:54)
[2021-01-26] MEDS: Budesonide 0.5 MG/2 ML Neb Susp NEB SCH (07:19)
[2021-01-26] MEDS: Arformoterol 15 MCG/2 ML Neb Soln NEB SCH (07:19)
[2021-01-26] MEDS: Furosemide 40 MG Tab PO SCH (08:39)
[2021-01-26] MEDS: Citalopram 20 MG Tab PO SCH (08:39)
[2021-01-26] MEDS: Spironolactone 25 MG Tab PO SCH (08:39)
[2021-01-26] MEDS: Allopurinol 100 MG Tab PO SCH (08:39)
[2021-01-26 09:53] VITALS: BP 129/55; PULSE 66
--- NOTE | 2021-01-26 10:57 | PCM.DCSUM1 ---
Discharge Summary - Hospital Course Brief History: 80-year-old female with cirrhosis and chronic liver disease as well as COPD both thought secondary to alpha 1 antitrypsin deficiency who presented with generalized weakness and increasing edema. She was admitted for management of decompensated liver disease. 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 as well as alcohol Qualifiers: Hepatic coma status: without hepatic coma Qualified Code(s): K72.10 - Chronic hepatic failure without coma (2) Cirrhosis of liver SNOMED Code(s): 90968569 ICD Code: K74.60 - UNSPECIFIED CIRRHOSIS OF LIVER Status: Chronic Priority: High Qualifiers: Hepatic cirrhosis type: unspecified hepatic cirrhosis Ascites presence: with ascites Qualified Code(s): K74.60 - Unspecified cirrhosis of liver; R18.8 - Other ascites (3) Bilateral lower extremity edema SNOMED Code(s): 331290977, 68141408, 638640303 ICD Code: R60.0 - LOCALIZED EDEMA Status: Acute Priority: High Problem Details: Assumed to be due to CLD and hypoalbuminemia as well as patient refusal to take medications (4) Generalized weakness SNOMED Code(s): 20547307 ICD Code: R53.1 - WEAKNESS Status: Acute Priority: Medium (5) COPD (chronic obstructive pulmonary disease) SNOMED Code(s): 67331719 ICD Code: J44.9 - CHRONIC OBSTRUCTIVE PULMONARY DISEASE, UNSPECIFIED Status: Chronic Problem Details: Likely due to A1AT Qualifiers: COPD type: unspecified COPD Qualified Code(s): J44.9 - Chronic obstructive pulmonary disease, unspecified (6) CKD (chronic kidney disease), stage III SNOMED Code(s): 419430175 ICD Code: N18.30 - CHRONIC KIDNEY DISEASE, STAGE 3 UNSPECIFIED Status: Chronic Qualifiers: Chronic kidney disease stage 3 subtype: stage 3a (GFR 45-59) Qualified Code(s): N18.31 - Chronic kidney disease, stage 3a - Patient Summary/Data Consults: Consultations 01/22/21 11:45 OT Evaluation and Treatment [CONS] Routine Please Evaluate and Treat. OT Reason for Consult: Weakness, falling at home This query below is only for informational purposes and is not editable. Admission Diagnosis/Problem: Liver failure PT Evaluation and Treatment [CONS] Routine Please Evaluate and Treat. PT Reason for Consult: Weakness This query below is only for informational purposes and is not editable. Admission Diagnosis/Problem: Liver failure Hospital Course: Pat presented to the emergency room with weakness, increasing edema and abdominal distention. Work-up in the emergency room suggested decompensated liver disease. Patient was started on IV diuretics as well as albumin and admitted to the hospital for further management. There is no evidence for infection at the time of presentation. During the early portion of the hospital stay we utilized IV diuretics as well as the addition of oral spironolactone with good response. We did supplement albumin to aid in the diuresis. We have had good success with dramatic improvement in her lower extremity edema. She does have some mild dependent edema left. She was evaluated with ultrasound during the early portion of the hospital stay but there was not a large enough quantity of ascites for paracentesis so this was delayed. We have seen a slow improvement in strength as well as her appetite during the course of the hospital stay. Ambulation has improved as the edema has improved. Her kidney function has remained stable with the diuresis. She continues to be weak and I think she would benefit from subacute rehab. Her goal is to make it back home with independent living though she has been struggling there lately. Hopefully with subacute rehab and some additional management she will be able to make that happen. She is stable and safe for discharge to the halfway at this time. During the hospital stay we did discuss to potential treatment paths with 1 being ongoing aggressive/invasive treatment with as needed paracentesis, hospitalization and medication management versus a transition to more of a comfort based approach given her declining liver disease. She is not a candidate for liver transplant at this point. At this time she would like to t ry the subacute rehab path with ongoing interventions as needed. If her condition declines further she may consider transition to hospice at that time. - Patient Instructions Diet: Low Sodium (2 g sodium ) Activity: As Tolerated Showering/Bathing: May Shower Notify Provider of: Fever, Increased Pain Other/Special Instructions: 1. You were in the hospital for management of decompensated chronic liver disease with lower extremity edema and some ascites. Your lower extremity edema is improving with diuresis. We did perform an ultrasound and determined that there is not enough ascites to be drained at this time. I recommend that we increase your furosemide to 40 mg twice a day and start spironolactone twice daily as well. At this time there is no indication for paracentesis but if there is increasing abdominal distention this could be considered. 2. Referral to physical and occupational therapy for strengthening in the setting of acute generalized weakness on top of chronic weakness due to chronic liver disease. 3. Code status - DNR/DNI. 4. BMP in 4 to 5 days to recheck kidney function and potassium - Discharge Plan *PRESCRIPTION DRUG MONITORING PROGRAM REVIEWED*: Not Applicable *COPY OF PRESCRIPTION DRUG MONITORING REPORT IN PATIENT SUE: Not Applicable Prescriptions/Med Rec: Spironolactone [Aldactone] 25 mg PO BIDDIURETIC #60 tablet Furosemide [Lasix] 40 mg PO BIDDIURETIC #60 tablet Acetaminophen [Tylenol] 650 mg PO Q4H PRN #100 tablet PRN Reason: Pain/Fever Ondansetron [Zofran ODT] 4 mg PO Q6H PRN #30 tab.dis PRN Reason: Nausea able to take PO Home Medications: Home Meds Metoprolol Tartrate [Lopressor] 50 mg PO BID 11/12/13 [History] Albuterol Sulfate [Proair Respiclick] 2 puff IH Q4H PRN 12/22/20 [History] Albuterol/Ipratropium [DuoNeb 3.0-0.5 MG/3 ML] 3 ml INH QID PRN 12/27/20 [History] Arformoterol [Brovana] 1 puff INH BID 12/27/20 [History] Budesonide [Pulmicort] 0.5 mg IH BID 12/27/20 [History] Fluticasone Propionate [Flonase] 2 spray NS DAILY 12/27/20 [History] Revefenacin [Yupelri] 1 puff IH DAILY 12/27/20 [History] allopurinoL [Zyloprim] 300 mg PO DAILY 12/27/20 [History] Citalopram Hydrobromide [Celexa] 40 mg PO DAILY 01/10/21 [History] Acetaminophen [Tylenol] 650 mg PO Q4H PRN #100 tablet 01/26/21 [Rx] Furosemide [Lasix] 40 mg PO BIDDIURETIC #60 tablet 01/26/21 [Rx] Ondansetron [Zofran ODT] 4 mg PO Q6H PRN #30 tab.dis 01/26/21 [Rx] Spironolactone [Aldactone] 25 mg PO BIDDIURETIC #60 tablet 01/26/21 [Rx] Oxygen Therapy Mode: Room Air Patient Handouts: Furosemide Oral Tablets, Cirrhosis Forms: ED Department Discharge Referrals: Gladis Roblero PA-C [Primary Care Provider] - (f/u as needed after the NH stay ) - Discharge Summary/Plan Comment DC Time >30 min.: Yes (45-new NH discharge ) - Patient Data Vitals - Most Recent: Last Vital Signs Temp 36.3 C 01/26/21 09:52 Pulse 66 01/26/21 09:52 Resp 18 01/26/21 09:52 BP 129/55 L 01/26/21 09:52 Pulse Ox 93 L 01/26/21 09:52 Weight - Most Recent: 82.1 kg I&O - Last 24 hours: Intake & Output 01/25/21 01/26/21 01/26/21 22:59 06:59 14:59 Intake Total 120 120 Output Total 400 75 Balance 120 -280 -75 Lab Results - Last 24 hrs: Laboratory Results - last 24 hr 01/26/21 01/26/21 Range/Units 05:42 08:23 Sodium 141 (140-148) mmol/L Potassium 4.6 (3.6-5.2) mmol/L Chloride 102 (100-108) mmol/L Carbon Dioxide 28 (21-32) mmol/L Anion Gap 10.9 (5.0-14.0) mmol/L BUN 25 H (7-18) mg/dL Creatinine 0.9 (0.6-1.0) mg/dL Est Cr Clr Drug Dosing 43.77 mL/min Estimated GFR (MDRD) > 60 (>60) Glucose 95 (74-106) mg/dL Calcium 8.7 (8.5-10.1) mg/dL SARS CoV-2 RNA Rapid LIZANDRO Negative Med Orders - Current: Current Medications Acetaminophen (Acetaminophen 325 Mg Tab) 650 mg PO Q4H PRN PRN Reason: Pain/Fever Albuterol (Albuterol 0.083% 2.5 Mg/3 Ml Neb Soln) 2.5 mg NEB Q2H PRN PRN Reason: Cough Last Admin: 01/23/21 17:50 Dose: 2.5 mg Documented by: Allopurinol (Allopurinol 100 Mg Tab) 100 mg PO DAILY [facility] Last Admin: 01/26/21 08:39 Dose: 100 mg Documented by: Arformoterol Tartrate (Arformoterol 15 Mcg/2 Ml Neb Soln) 15 mcg NEB BIDRT [facility] Last Admin: 01/26/21 07:19 Dose: 15 mcg Documented by: Budesonide (Budesonide 0.5 Mg/2 Ml Neb Susp) 0.5 mg NEB BIDRT [facility] Last Admin: 01/26/21 07:19 Dose: 0.5 mg Documented by: Citalopram Hydrobromide (Citalopram 20 Mg Tab) 40 mg PO DAILY [facility] Last Admin: 01/26/21 08:39 Dose: 40 mg Documented by: Furosemide (Furosemide 40 Mg Tab) 40 mg PO BIDDIURETIC [facility] Last Admin: 01/26/21 08:39 Dose: 40 mg Documented by: Promethazine HCl 6.25 mg/ (Sodium Chloride) 50.25 mls @ 200 mls/hr IV Q6H PRN PRN Reason: Nausea/Vomiting Ondansetron HCl (Ondansetron 4 Mg Tab.Dis) 4 mg PO Q6H PRN PRN Reason: Nausea able to take PO Last Admin: 01/26/21 08:36 Dose: 4 mg Documented by: Ondansetron HCl (Ondansetron 4 Mg/2 Ml Sdv) 4 mg IV Q4H PRN PRN Reason: Nausea/Vomiting Sodium Chloride (Sodium Chloride 0.9% 10 Ml Syringe) 10 ml FLUSH ASDIRECTED PRN PRN Reason: Keep Vein Open Last Admin: 01/21/21 22:08 Dose: 10 ml Documented by: Spironolactone (Spironolactone 25 Mg Tab) 25 mg PO BIDDIURETIC [facility] Last Admin: 01/26/21 08:39 Dose: 25 mg Documented by: Tramadol HCl (Tramadol 50 Mg Tab) 50 mg PO Q6H PRN PRN Reason: Pain Discontinued Medications Albuterol/Ipratropium (Albuterol/Ipratropium 3.0-0.5 Mg/3 Ml Neb Soln) 3 ml NEB Q4H PRN PRN Reason: Cough Furosemide (Furosemide 40 Mg/4 Ml Vial) 40 mg IVPUSH ONETIME ONE Stop: 01/21/21 23:06 Last Admin: 01/21/21 23:33 Dose: 40 mg Documented by: Furosemide (Furosemide 40 Mg/4 Ml Vial) 40 mg IVPUSH Q6HR [facility] Last Admin: 01/22/21 05:39 Dose: 40 mg Documented by: Furosemide (Furosemide 40 Mg/4 Ml Vial) 40 mg IVPUSH Q6H [facility] Last Admin: 01/22/21 12:21 Dose: 40 mg Documented by: Furosemide (Furosemide 40 Mg/4 Ml Vial) 40 mg IVPUSH BID [facility] Last Admin: 01/24/21 09:19 Dose: 40 mg Documented by: Furosemide (Furosemide 40 Mg/4 Ml Vial) 40 mg IVPUSH Q8H [facility] Last Admin: 01/25/21 07:58 Dose: 40 mg Documented by: Albumin Human (Albumin 25%) 25 gm in 100 mls @ 25 mls/hr IV ONETIME ONE Stop: 01/22/21 05:29 Last Admin: 01/22/21 00:49 Dose: 25 mls/hr Documented by: Albumin Human (Albumin 25%) 25 gm in 100 mls @ 25 mls/hr IV Q8H [facility] Stop: 01/24/21 02:59 Last Admin: 01/23/21 22:30 Dose: 25 mls/hr Documented by: Albumin Human (Albumin 25%) 25 gm in 100 mls @ 25 mls/hr IV Q8H [facility] Stop: 01/25/21 03:59 Last Admin: 01/24/21 23:48 Dose: 25 mls/hr Documented by: Morphine Sulfate (Morphine 2 Mg/Ml Syringe) 1 mg IVPUSH Q2H PRN PRN Reason: Pain (severe 7-10) Potassium Chloride (Potassium Chloride 20 Meq Tab.Er) 40 meq PO ONETIME ONE Stop: 01/25/21 08:11 Last Admin: 01/25/21 08:39 Dose: 40 meq Documented by: Spironolactone (Spironolactone 25 Mg Tab) 100 mg PO ONETIME ONE Stop: 01/22/21 00:00 Last Admin: 01/22/21 00:48 Dose: 100 mg Documented by: Spironolactone (Spironolactone 25 Mg Tab) 25 mg PO DAILY [facility] Last Admin: 01/25/21 08:00 Dose: 25 mg Documented by: - Exam Quality Assessment: Denies: Supplemental Oxygen General: Reports: Alert, Oriented, Cooperative, No Acute Distress Lungs: Reports: Normal Respiratory Effort GI/Abdominal Exam: Soft, No Distention, Tender (Mild right lower quadrant) Extremities: Other (Mild dependent edema of the proximal posterior thighs). No: Pedal Edema Skin: Reports: Warm, Dry Psy/Mental Status: Reports: Alert, Normal Affect
== END 2021-01-26 13:00 | DRG 433 ==
LOC: JP.ED 20:51 → JP.MS 23:29
PROVIDERS: ADMIT Family Medicine; ATTEND Internal Medicine
DX: K70.40 Alcoholic hepatic failure without coma (principal); N17.9 Acute kidney failure, unspecified; I13.0 Hypertensive heart and chronic kidney disease with heart failure and stage 1 through stage 4 chronic kidney disease, or unspecified chronic kidney disease; E88.01 Alpha-1-antitrypsin deficiency; R10.84 Generalized abdominal pain; R53.1 Weakness; K70.31 Alcoholic cirrhosis of liver with ascites; R29.6 Repeated falls; E88.09 Other disorders of plasma-protein metabolism, not elsewhere classified; I50.9 Heart failure, unspecified; Z66 Do not resuscitate; Z51.5 Encounter for palliative care; K74.60 Unspecified cirrhosis of liver; K57.90 Diverticulosis of intestine, part unspecified, without perforation or abscess without bleeding; R18.8 Other ascites; R74.02 Elevation of levels of lactic acid dehydrogenase [LDH]; H54.7 Unspecified visual loss; N18.31 Chronic kidney disease, stage 3a; H91.90 Unspecified hearing loss, unspecified ear; J44.9 Chronic obstructive pulmonary disease, unspecified; K21.9 Gastro-esophageal reflux disease without esophagitis; F32.9 Major depressive disorder, single episode, unspecified; K52.9 Noninfective gastroenteritis and colitis, unspecified; Z20.822 Contact with and (suspected) exposure to COVID-19; R13.10 Dysphagia, unspecified; Z96.649 Presence of unspecified artificial hip joint; Z96.659 Presence of unspecified artificial knee joint; Z98.49 Cataract extraction status, unspecified eye; Z85.828 Personal history of other malignant neoplasm of skin; Z90.49 Acquired absence of other specified parts of digestive tract; Z98.890 Other specified postprocedural states; Z88.5 Allergy status to narcotic agent; Z88.2 Allergy status to sulfonamides; Z88.1 Allergy status to other antibiotic agents; Z91.030 Bee allergy status; Z79.51 Long term (current) use of inhaled steroids; Z79.899 Other long term (current) drug therapy; Z86.73 Personal history of transient ischemic attack (TIA), and cerebral infarction without residual deficits
CPT/HCPCS: 36415; 51702; 74176; 80048; 80053; 80076; 81001; 83605; 83880; 84484; 85025; 85027; 85610; 85730; 93005; 93010; 94640; 97110-GO; 97110-GP; 97161-GP; 97165-GO; 97530-GP; 97535-GO; 99284; 99285-25; A9270-GY; J1940; J7605; P9047; U0002